=== PATIENT | female | born 1995 | race African-American/Black ===

== ENCOUNTER 2018-07-02 20:53 | Emergency (ER) | payer OTHER ==
[~2018-07-02 20:53] MED LIST: CARV3.1242 PO; CLON0.2T PO; FURO20TA4 PO; NIFE60TA64 PO
== END 2018-07-02 22:10 | disposition left against medical advice (07) ==
LOC: ER 20:53
DX: Z53.21 Procedure and treatment not carried out due to patient leaving prior to being seen by health care provider (principal)

== ENCOUNTER 2018-07-04 11:27 | Inpatient (IN) | payer OTHER ==
[~2018-07-04] VITALS: Ht 172.7 cm; Wt 112.5 kg
[2018-07-04] MEDS ORDERED: SODIUM CHLORIDE 0.9% 1,000 ML IV ONE ×2 (13:24→13:36)
[2018-07-04] MEDS ORDERED: ONDANSETRON HCL 4MG/2ML INJ IV STA (13:36)
[2018-07-04] MEDS ORDERED: MORPHINE SULFATE 4 MG/ML CPJ (NOT FOR IM USE) IV STA (13:36)
[2018-07-04] MEDS ORDERED: CEFTRIAXONE 1 G PREMIX 50 ML IV ONE (14:00)
[2018-07-04 14:57] LABS: CLARITY URINE CLEAR (CLEAR); COLOR URINE YELLOW (YELLOW); KETONES URINE NEGATIVE (NEGATIVE); LEUKOCYTE ESTERASE URINE NEGATIVE (NEGATIVE); NITRITE URINE NEGATIVE (NEGATIVE); OCCULT BLOOD URINE TRACE (NEGATIVE); PH URINE 6.5 (4.5-8.0); PROTEIN URINE 2+ (NEGATIVE); SPECIFIC GRAVITY URINE 1.007 (1.005-1.030); UROBILINOGEN URINE 0.2 E.U./dL (0.2-1.0)
[2018-07-04 15:10] LABS: BASOPHILS % 0.6 % (0.0-2.0); EOSINOPHILS % 8.7 % (0.0-5.0); HEMATOCRIT. 29.8 % (36.0-48.0); HEMOGLOBIN. 9.6 g/dL (12.0-16.0); LYMPHOCYTES % 25.9 % (20.0-50.0); MEAN CORPUSCULAR HEMOGLOBIN 24.3 pg (28.0-32.0); MEAN CORPUSCULAR VOLUME 75.1 fL (81.0-99.0); MEAN PLATELET VOLUME 7.4 fl (7.4-10.4); MONOCYTES % 7.1 % (2.0-8.0); NEUTROPHILS % 57.7 % (40.0-76.0); PLATELET 238 x1000/uL (130-400); RED BLOOD CELL COUNT 3.96 mill/uL (4.2-5.4); RED CELL DISTRIBUTION WIDTH 18.8 % (11.6-14.6)
[2018-07-04 15:14] LABS: INR 1.1; PROTHROMBIN TIME 10.9 sec (9.1-11.1)
[2018-07-04 15:20] LABS: CHLORIDE 107 mEq/L (98-107)
[2018-07-04 15:34] LABS: HCG SCREEN NEGATIVE
[2018-07-04] MEDS ORDERED: POTASSIUM CHLORIDE 20MEQ TABLET SR PO ONE (15:45)
[2018-07-04] MEDS ORDERED: IPRATROPIUM/ALBUTEROL 0.5-3(2.5)MG/3ML NEB INH PRN (19:30)
[2018-07-04] MEDS ORDERED: ACETAMINOPHEN 325MG TABLET PO PRN (19:30)
[2018-07-04] MEDS ORDERED: HYDROCODONE/ACETAMINOPHEN 5/325MG TABLET PO PRN (19:30)
[2018-07-04] MEDS ORDERED: LORAZEPAM 2MG/ML CPJ IV PRN (19:30)
[2018-07-04] MEDS: MORPHINE SULFATE 4 MG/ML CPJ (NOT FOR IM USE) IV PRN (20:15)
[2018-07-04] MEDS: ONDANSETRON HCL 4MG/2ML INJ IV PRN (20:16)
[2018-07-04 21:54] VITALS: BP 160/84
[2018-07-05] VITALS: BP 160/84
[2018-07-05] MEDS: MORPHINE SULFATE 4 MG/ML CPJ (NOT FOR IM USE) IV PRN ×4 (02:37→22:33)
[2018-07-05 04:00] VITALS: BP 151/81
[2018-07-05 08:00] VITALS: BP 142/76
[2018-07-05] MEDS: POTASSIUM CHLORIDE 20MEQ TABLET SR PO SCH ×2 (09:42→17:18)
[2018-07-05] MEDS: CEFTRIAXONE 1 G PREMIX 50 ML IV SCH (10:52)
[2018-07-05 12:00] VITALS: BP 150/80
[2018-07-05] MEDS: HYDROCODONE/ACETAMINOPHEN 10/325MG TABLET PO PRN (15:37)
[2018-07-05 16:00] VITALS: BP 180/101
[2018-07-05 16:14] LABS: HEMATOCRIT 27.2 % (36.0-48.0); HEMOGLOBIN 9.1 g/dL (12.0-16.0); MEAN CORPUSCULAR HEMOGLOBIN 25.1 pg (28.0-32.0); MEAN CORPUSCULAR VOLUME 75.3 fL (81.0-99.0); PLATELET 250 x1000/uL (130-400); RED BLOOD CELL COUNT 3.62 mill/uL (4.2-5.4); RED CELL DISTRIBUTION WIDTH 19.1 % (11.6-14.6)
[2018-07-05 16:23] LABS: CHLORIDE 106 mEq/L (98-107)
[2018-07-05] MEDS ORDERED: CARVEDILOL 3.125 MG TABLET PO SCH (17:00)
[2018-07-05] MEDS: CLONIDINE 0.2MG TABLET PO PRN (17:20)
[2018-07-05] MEDS ORDERED: MAGNESIUM 4 G PREMIX 100 ML IV NR (18:00)
[2018-07-05 20:00] VITALS: BP 158/87
[2018-07-06] VITALS: BP 152/75
[2018-07-06 04:00] VITALS: BP 159/86
[2018-07-06] MEDS: HYDROCODONE/ACETAMINOPHEN 10/325MG TABLET PO PRN (04:03)
[2018-07-06 07:31] LABS: BASOPHILS % 0.7 % (0.0-2.0); EOSINOPHILS % 8.1 % (0.0-5.0); HEMATOCRIT. 28.3 % (36.0-48.0); HEMOGLOBIN. 9.2 g/dL (12.0-16.0); LYMPHOCYTES % 26.2 % (20.0-50.0); MEAN CORPUSCULAR HEMOGLOBIN 24.5 pg (28.0-32.0); MEAN CORPUSCULAR VOLUME 75.3 fL (81.0-99.0); MEAN PLATELET VOLUME 7.4 fl (7.4-10.4); MONOCYTES % 7.8 % (2.0-8.0); NEUTROPHILS % 57.2 % (40.0-76.0); PLATELET 231 x1000/uL (130-400); RED BLOOD CELL COUNT 3.76 mill/uL (4.2-5.4); RED CELL DISTRIBUTION WIDTH 19.3 % (11.6-14.6)
[2018-07-06 08:00] VITALS: BP 177/99
[2018-07-06] MEDS: NIFEDIPINE XL 60MG TAB PO SCH (08:48)
[2018-07-06] MEDS: POTASSIUM CHLORIDE 20MEQ TABLET SR PO SCH ×2 (08:48→16:48)
[2018-07-06] MEDS: MORPHINE SULFATE 4 MG/ML CPJ (NOT FOR IM USE) IV PRN ×3 (08:49→18:08)
[2018-07-06] MEDS ORDERED: CARVEDILOL 3.125 MG TABLET PO SCH (09:00)
[2018-07-06] MEDS: CEFTRIAXONE 1 G PREMIX 50 ML IV SCH (11:27)
[2018-07-06 12:00] VITALS: BP 152/96
[2018-07-06 16:00] VITALS: BP 171/100
[2018-07-06] MEDS: CLONIDINE 0.2MG TABLET PO PRN ×2 (18:06→20:48)
[2018-07-06] MEDS: ONDANSETRON HCL 4MG/2ML INJ IV PRN (18:07)
[2018-07-06 20:00] VITALS: BP 161/89
[2018-07-07] VITALS: BP 136/79
[2018-07-07] MEDS: MORPHINE SULFATE 4 MG/ML CPJ (NOT FOR IM USE) IV PRN ×3 (02:48→15:04)
[2018-07-07 04:00] VITALS: BP 155/89
[2018-07-07 06:17] LABS: BASOPHILS % 0.1 % (0.0-2.0); EOSINOPHILS % 6.5 % (0.0-5.0); LYMPHOCYTES % 25.3 % (20.0-50.0); MEAN CORPUSCULAR HEMOGLOBIN 25.1 pg (28.0-32.0); MEAN CORPUSCULAR VOLUME 75.3 fL (81.0-99.0); MEAN PLATELET VOLUME 7.3 fl (7.4-10.4); MONOCYTES % 7.3 % (2.0-8.0); NEUTROPHILS % 60.8 % (40.0-76.0); PLATELET 252 x1000/uL (130-400); RED BLOOD CELL COUNT 3.58 mill/uL (4.2-5.4); RED CELL DISTRIBUTION WIDTH 18.8 % (11.6-14.6)
[2018-07-07 06:42] LABS: CHLORIDE 106 mEq/L (98-107)
[2018-07-07 06:55] LABS: PHOSPHORUS 4.3 mg/dL (2.5-4.9)
[2018-07-07 08:00] VITALS: BP 160/96
[2018-07-07] MEDS: POTASSIUM CHLORIDE 20MEQ TABLET SR PO SCH ×2 (09:59→16:14)
[2018-07-07] MEDS: NIFEDIPINE XL 60MG TAB PO SCH (10:04)
[2018-07-07] MEDS: CEFTRIAXONE 1 G PREMIX 50 ML IV SCH (10:25)
[2018-07-07 12:00] VITALS: BP 155/91
[2018-07-07] MEDS ORDERED: NIFEDIPINE XL 30MG TAB PO SCH (12:15)
[2018-07-07 16:00] VITALS: BP 150/83
[2018-07-07 20:00] VITALS: BP 154/92
[2018-07-08] VITALS: BP 121/100
[2018-07-08] MEDS: CLONIDINE 0.2MG TABLET PO PRN (00:13)
[2018-07-08] MEDS: MORPHINE SULFATE 4 MG/ML CPJ (NOT FOR IM USE) IV PRN ×2 (02:29→09:30)
[2018-07-08 04:00] VITALS: BP 168/104
[2018-07-08] MEDS: ONDANSETRON HCL 4MG/2ML INJ IV PRN (04:25)
[2018-07-08 07:53] LABS: BASOPHILS % 0.3 % (0.0-2.0); EOSINOPHILS % 8.7 % (0.0-5.0); HEMATOCRIT. 30.8 % (36.0-48.0); LYMPHOCYTES % 18.1 % (20.0-50.0); MEAN CORPUSCULAR HEMOGLOBIN 24.5 pg (28.0-32.0); MEAN CORPUSCULAR VOLUME 75.5 fL (81.0-99.0); MEAN PLATELET VOLUME 7.3 fl (7.4-10.4); MONOCYTES % 5.8 % (2.0-8.0); NEUTROPHILS % 67.1 % (40.0-76.0); PLATELET 264 x1000/uL (130-400); RED BLOOD CELL COUNT 4.08 mill/uL (4.2-5.4); RED CELL DISTRIBUTION WIDTH 18.7 % (11.6-14.6)
[2018-07-08 08:00] VITALS: BP 160/88
[2018-07-08 08:58] LABS: PHOSPHORUS 3.6 mg/dL (2.5-4.9)
[2018-07-08] MEDS ORDERED: NIFEDIPINE XL 90MG TAB PO SCH (09:00)
[2018-07-08] MEDS: POTASSIUM CHLORIDE 20MEQ TABLET SR PO SCH ×2 (09:14→17:44)
[2018-07-08] MEDS: NIFEDIPINE XL 90MG TAB PO SCH (09:17)
[2018-07-08] MEDS: CEFTRIAXONE 1 G PREMIX 50 ML IV SCH (10:54)
[2018-07-08 12:00] VITALS: BP 162/97
[2018-07-08] MEDS ORDERED: CLONIDINE HCL 0.2MG/24HR PATCH TD SCH (14:00)
[2018-07-08] MEDS: HYDROCODONE/ACETAMINOPHEN 10/325MG TABLET PO PRN ×2 (14:54→21:11)
[2018-07-08 16:00] VITALS: BP 149/84
[2018-07-08 20:00] VITALS: BP 154/90
[2018-07-09] VITALS: BP 150/85
[2018-07-09] MEDS: MORPHINE SULFATE 4 MG/ML CPJ (NOT FOR IM USE) IV PRN ×2 (01:14→09:15)
[2018-07-09 04:00] VITALS: BP 161/90
[2018-07-09 05:25] LABS: PHOSPHORUS 3.6 mg/dL (2.5-4.9)
[2018-07-09 06:13] LABS: BASOPHILS % 0.2 % (0.0-2.0); EOSINOPHILS % 12.8 % (0.0-5.0); HEMATOCRIT. 27.1 % (36.0-48.0); LYMPHOCYTES % 22.5 % (20.0-50.0); MEAN CORPUSCULAR HEMOGLOBIN 25.1 pg (28.0-32.0); MEAN CORPUSCULAR VOLUME 75.3 fL (81.0-99.0); MONOCYTES % 8.7 % (2.0-8.0); NEUTROPHILS % 55.8 % (40.0-76.0); PLATELET 229 x1000/uL (130-400); RED CELL DISTRIBUTION WIDTH 18.8 % (11.6-14.6)
[2018-07-09 08:00] VITALS: BP 164/102
[2018-07-09] MEDS ORDERED: POTASSIUM CHLORIDE 10MEQ TABLET SR PO NR (08:15)
[2018-07-09] MEDS ORDERED: HYDRALAZINE HCL 50MG TABLET PO SCH (09:00)
[2018-07-09] MEDS: POTASSIUM CHLORIDE 20MEQ TABLET SR PO SCH ×2 (09:09→17:03)
[2018-07-09] MEDS: HYDRALAZINE HCL 50MG TABLET PO SCH ×2 (09:10→21:34)
[2018-07-09] MEDS: NIFEDIPINE XL 90MG TAB PO SCH (09:10)
[2018-07-09] MEDS: CEFTRIAXONE 1 G PREMIX 50 ML IV SCH (11:08)
[2018-07-09 12:00] VITALS: BP 195/108
[2018-07-09] MEDS: CLONIDINE 0.1MG TABLET PO PRN (12:28)
[2018-07-09] MEDS: LEVOFLOXACIN 250MG TABLET PO SCH (12:30)
[2018-07-09] MEDS: HYDROCODONE/ACETAMINOPHEN 10/325MG TABLET PO PRN (14:33)
[2018-07-09 16:00] VITALS: BP 158/103
[2018-07-09 20:00] VITALS: BP 168/98
[2018-07-10] VITALS: BP_SYST 175; BP_SYST 99; BP_DIAS 60; BP_DIAS 98
[2018-07-10] MEDS: CLONIDINE 0.1MG TABLET PO PRN ×2 (01:00→13:44)
[2018-07-10] MEDS: HYDROCODONE/ACETAMINOPHEN 5/325MG TABLET PO PRN ×3 (01:00→18:32)
[2018-07-10 04:00] VITALS: BP_SYST 108; BP_SYST 168; BP_DIAS 99
[2018-07-10 08:00] VITALS: BP 184/108
[2018-07-10] MEDS: HYDRALAZINE HCL 50MG TABLET PO SCH ×2 (09:09→22:24)
[2018-07-10] MEDS: POTASSIUM CHLORIDE 20MEQ TABLET SR PO SCH ×2 (09:10→18:31)
[2018-07-10] MEDS: NIFEDIPINE XL 90MG TAB PO SCH ×2 (09:10→22:24)
[2018-07-10 10:41] LABS: HEMOGLOBIN. 9.9 g/dL (12.0-16.0); MEAN CORPUSCULAR HEMOGLOBIN 24.7 pg (28.0-32.0); MEAN CORPUSCULAR VOLUME 74.4 fL (81.0-99.0); MEAN PLATELET VOLUME 8.3 fl (7.4-10.4); PLATELET 228 x1000/uL (130-400); RED BLOOD CELL COUNT 4.03 mill/uL (4.2-5.4); RED CELL DISTRIBUTION WIDTH 18.8 % (11.6-14.6)
[2018-07-10 11:15] LABS: PHOSPHORUS 3.6 mg/dL (2.5-4.9)
[2018-07-10 12:00] VITALS: BP 161/91
[2018-07-10 12:06] LABS: PLATELET ESTIMATE NORMAL
[2018-07-10 16:00] VITALS: BP 155/93
[2018-07-10 20:00] VITALS: BP 148/81
[2018-07-11 01:24] VITALS: BP 147/83
[2018-07-11 02:24] VITALS: BP 148/81
[2018-07-11 04:40] VITALS: BP 132/67
[2018-07-11] MEDS: POTASSIUM CHLORIDE 20MEQ TABLET SR PO SCH (08:22)
[2018-07-11] MEDS: NIFEDIPINE XL 90MG TAB PO SCH (08:22)
[2018-07-11] MEDS: HYDRALAZINE HCL 50MG TABLET PO SCH (08:22)
[2018-07-11 10:53] LABS: HEMATOCRIT. 30.2 % (36.0-48.0); MEAN CORPUSCULAR HEMOGLOBIN 24.8 pg (28.0-32.0); MEAN CORPUSCULAR VOLUME 75.1 fL (81.0-99.0); MEAN PLATELET VOLUME 7.5 fl (7.4-10.4); PLATELET 278 x1000/uL (130-400); RED BLOOD CELL COUNT 4.02 mill/uL (4.2-5.4); RED CELL DISTRIBUTION WIDTH 19.1 % (11.6-14.6)
[2018-07-11 11:10] LABS: PHOSPHORUS 3.4 mg/dL (2.5-4.9)
[2018-07-11] MEDS ORDERED: LEVO250T2 PO (11:29)
[2018-07-11] MEDS ORDERED: NIFE90TA34 PO (11:29)
[2018-07-11] MEDS ORDERED: HYDR-4135 PO (11:29)
[2018-07-11] MEDS ORDERED: CLON1PAT11 TD (11:29)
[2018-07-11] MEDS ORDERED: POTA20TA82 PO (11:29)
[2018-07-11 11:32] LABS: PLATELET ESTIMATE NORMAL
[2018-07-11 12:00] VITALS: BP 172/100
[2018-07-11] MEDS: LEVOFLOXACIN 250MG TABLET PO SCH (12:16)
[2018-07-11 12:41] VITALS: BP 151/77
[2018-07-12] MEDS ORDERED: POTASSIUM CHLORIDE 20MEQ TABLET SR PO SCH (09:00)
== END 2018-07-11 15:15 | disposition home or self-care (01) | DRG 468 ==
LOC: ER 13:42 → 6EST 15:41 → ENRESERV 20:21
PROVIDERS: ADMIT Internal Medicine; ATTEND Internal Medicine
DX: N28.1 Cyst of kidney, acquired (principal); N17.9 Acute kidney failure, unspecified; N18.4 Chronic kidney disease, stage 4 (severe); E83.42 Hypomagnesemia; E83.51 Hypocalcemia; E66.9 Obesity, unspecified; N39.0 Urinary tract infection, site not specified; E87.6 Hypokalemia; R31.9 Hematuria, unspecified; D64.9 Anemia, unspecified; I12.9 Hypertensive chronic kidney disease with stage 1 through stage 4 chronic kidney disease, or unspecified chronic kidney disease; E28.2 Polycystic ovarian syndrome; Z88.0 Allergy status to penicillin; Z68.37 Body mass index [BMI] 37.0-37.9, adult; Z88.6 Allergy status to analgesic agent; Z88.1 Allergy status to other antibiotic agents; Z79.899 Other long term (current) drug therapy; Z87.891 Personal history of nicotine dependence
CPT/HCPCS: 36415; 74176; 76770; 80048; 81025; 83735; 84100; 84703; 85027; 96361; 96365; 96375; 99285; J0696; J2270; J2405; J3475; J7030; J7050

== ENCOUNTER 2018-08-29 02:15 | Emergency (ER) | payer OTHER ==
[~2018-08-29] VITALS: Ht 172.7 cm; Wt 116.0 kg
[~2018-08-29 02:15] MED LIST changes: -CARV3.1242 PO; -CLON0.2T PO; +CLON1PAT11 TD; -FURO20TA4 PO; +HYDR-4135 PO; +LEVO250T2 PO; -NIFE60TA64 PO; +NIFE90TA34 PO; +POTA20TA82 PO
[2018-08-29 02:22] VITALS: BP 169/86
== END 2018-08-29 04:31 | disposition left against medical advice (07) ==
LOC: ER 02:15
DX: R10.9 Unspecified abdominal pain (principal); Z53.21 Procedure and treatment not carried out due to patient leaving prior to being seen by health care provider

== ENCOUNTER 2018-09-14 22:44 | Emergency (ER) | payer OTHER ==
[~2018-09-14] VITALS: Ht 172.7 cm; Wt 115.0 kg
[2018-09-15] MEDS ORDERED: KETOROLAC 60MG/2ML VIAL IM ONE (04:45)
[2018-09-15 05:14] LABS: CLARITY URINE CLEAR (CLEAR); COLOR URINE YELLOW (YELLOW); KETONES URINE NEGATIVE (NEGATIVE); LEUKOCYTE ESTERASE URINE TRACE (NEGATIVE); NITRITE URINE NEGATIVE (NEGATIVE); OCCULT BLOOD URINE TRACE (NEGATIVE); PROTEIN URINE 2+ (NEGATIVE); SPECIFIC GRAVITY URINE 1.009 (1.005-1.030); UROBILINOGEN URINE 0.2 E.U./dL (0.2-1.0)
[2018-09-15] MEDS ORDERED: ACETAMINOPHEN 500MG TABLET PO ONE (06:00)
[2018-09-15] MEDS ORDERED: CLONIDINE 0.2MG TABLET PO ONE (06:00)
[2018-09-15 06:52] VITALS: BP 178/89
== END 2018-09-15 06:54 | disposition home or self-care (01) ==
LOC: ER 22:44
DX: N39.0 Urinary tract infection, site not specified (principal); I10 Essential (primary) hypertension; F12.10 Cannabis abuse, uncomplicated; F17.200 Nicotine dependence, unspecified, uncomplicated; Z88.0 Allergy status to penicillin; Z88.8 Allergy status to other drugs, medicaments and biological substances
CPT/HCPCS: 74176; 81003; 81025; 99284; J1885

== ENCOUNTER 2018-09-19 17:52 | Emergency (ER) | payer OTHER ==
[~2018-09-19] VITALS: Ht 172.7 cm; Wt 113.5 kg
[2018-09-19 18:12] VITALS: BP 199/96
[2018-09-19 19:08] LABS: CHLORIDE 110 mEq/L (98-107)
[2018-09-19 19:12] LABS: BASOPHILS % 0.9 % (0.0-2.0); EOSINOPHILS % 3.3 % (0.0-5.0); HEMATOCRIT. 27.6 % (36.0-48.0); LYMPHOCYTES % 29.7 % (20.0-50.0); MEAN CORPUSCULAR HEMOGLOBIN 25.1 pg (28.0-32.0); MEAN CORPUSCULAR VOLUME 76.7 fL (81.0-99.0); MEAN PLATELET VOLUME 8.3 fl (7.4-10.4); MONOCYTES % 6.3 % (2.0-8.0); NEUTROPHILS % 59.8 % (40.0-76.0); PLATELET 244 x1000/uL (130-400)
[2018-09-19 19:25] LABS: HCG SCREEN NEGATIVE
== END 2018-09-19 20:30 | disposition left against medical advice (07) ==
LOC: ER 17:52
DX: R07.89 Other chest pain (principal); M54.9 Dorsalgia, unspecified; Z53.21 Procedure and treatment not carried out due to patient leaving prior to being seen by health care provider
CPT/HCPCS: 36415; 83880; 84484; 84703; 93005

== ENCOUNTER 2018-10-24 12:03 | Emergency (ER) | payer OTHER ==
[~2018-10-24] VITALS: Ht 172.7 cm; Wt 116.0 kg
[2018-10-24 15:20] LABS: CHLORIDE 109 mEq/L (98-107)
[2018-10-24 15:21] LABS: BASOPHILS % 0.6 % (0.0-2.0); EOSINOPHILS % 3.4 % (0.0-5.0); HEMATOCRIT. 28.3 % (36.0-48.0); HEMOGLOBIN. 9.1 g/dL (12.0-16.0); INR 1.1; LYMPHOCYTES % 27.1 % (20.0-50.0); MEAN CORPUSCULAR HEMOGLOBIN 24.9 pg (28.0-32.0); MEAN CORPUSCULAR VOLUME 77.2 fL (81.0-99.0); MEAN PLATELET VOLUME 8.2 fl (7.4-10.4); MONOCYTES % 8.6 % (2.0-8.0); NEUTROPHILS % 60.3 % (40.0-76.0); PLATELET 236 x1000/uL (130-400); PROTHROMBIN TIME 10.9 sec (9.1-11.1); RED BLOOD CELL COUNT 3.67 mill/uL (4.2-5.4); RED CELL DISTRIBUTION WIDTH 17.7 % (11.6-14.6)
[2018-10-24] MEDS ORDERED: POTASSIUM CHLORIDE 20MEQ TABLET SR PO ONE (15:45)
[2018-10-24 17:51] LABS: CLARITY URINE CLEAR (CLEAR); COLOR URINE YELLOW (YELLOW); KETONES URINE NEGATIVE (NEGATIVE); LEUKOCYTE ESTERASE URINE TRACE (NEGATIVE); NITRITE URINE NEGATIVE (NEGATIVE); OCCULT BLOOD URINE NEGATIVE (NEGATIVE); PROTEIN URINE 2+ (NEGATIVE); SPECIFIC GRAVITY URINE 1.008 (1.005-1.030); UROBILINOGEN URINE 0.2 E.U./dL (0.2-1.0)
[2018-10-24] MEDS ORDERED: ONDANSETRON HCL 4MG/2ML INJ IV ONE (18:15)
[2018-10-24] MEDS ORDERED: MORPHINE SULFATE 4 MG/ML CPJ (NOT FOR IM USE) IV ONE (18:15)
[2018-10-24 20:21] VITALS: BP 162/78
== END 2018-10-24 20:25 | disposition home or self-care (01) ==
LOC: ER 12:03
DX: N39.0 Urinary tract infection, site not specified (principal); Q61.3 Polycystic kidney, unspecified; I12.0 Hypertensive chronic kidney disease with stage 5 chronic kidney disease or end stage renal disease; N18.6 End stage renal disease; Z88.0 Allergy status to penicillin; Z88.8 Allergy status to other drugs, medicaments and biological substances; Z79.899 Other long term (current) drug therapy; Z98.890 Other specified postprocedural states
CPT/HCPCS: 36415; 74176; 76770; 80053; 81003; 81025; 85025; 85610; 93005; 96374; 96375; 96376; 99284; J2270; J2405; Z7610

== ENCOUNTER 2018-12-31 04:46 | Inpatient (IN) | payer MEDICAID, OTHER ==
[~2018-12-31] VITALS: Ht 172.7 cm; Wt 110.3 kg
[2018-12-31 05:41] LABS: CLARITY URINE CLEAR (CLEAR); COLOR URINE YELLOW (YELLOW); KETONES URINE NEGATIVE (NEGATIVE); LEUKOCYTE ESTERASE URINE TRACE (NEGATIVE); NITRITE URINE NEGATIVE (NEGATIVE); OCCULT BLOOD URINE NEGATIVE (NEGATIVE); PH URINE 6.5 (4.5-8.0); PROTEIN URINE 1+ (NEGATIVE); SPECIFIC GRAVITY URINE 1.007 (1.005-1.030); UROBILINOGEN URINE 0.2 E.U./dL (0.2-1.0)
[2018-12-31 06:27] LABS: BASOPHILS % 1.2 % (0.0-2.0); EOSINOPHILS % 2.4 % (0.0-5.0); HEMATOCRIT. 25.7 % (36.0-48.0); HEMOGLOBIN. 8.4 g/dL (12.0-16.0); LYMPHOCYTES % 13.9 % (20.0-50.0); MEAN CORPUSCULAR HEMOGLOBIN 24.8 pg (28.0-32.0); MEAN CORPUSCULAR VOLUME 76.3 fL (81.0-99.0); MEAN PLATELET VOLUME 7.7 fl (7.4-10.4); MONOCYTES % 7.8 % (2.0-8.0); NEUTROPHILS % 74.7 % (40.0-76.0); PLATELET 206 x1000/uL (130-400); RED BLOOD CELL COUNT 3.37 mill/uL (4.2-5.4)
[2018-12-31 06:34] LABS: CHLORIDE 112 mEq/L (98-107)
[2018-12-31] MEDS ORDERED: POTASSIUM CHLORIDE 20MEQ TABLET SR PO ONE (07:00)
[2018-12-31] MEDS ORDERED: ACETAMINOPHEN 325MG TABLET PO ONE (07:15)
[2018-12-31] MEDS ORDERED: METOCLOPRAMIDE HCL 10MG/2ML VIAL IV ONE (07:15)
[2018-12-31] MEDS ORDERED: MORPHINE SULFATE 4 MG/ML CPJ (NOT FOR IM USE) IV ONE (08:15)
[2018-12-31] MEDS ORDERED: HYDRALAZINE HCL 50MG TABLET PO ONE (12:30)
[2018-12-31] MEDS ORDERED: ONDANSETRON HCL 4MG/2ML INJ IV PRN (13:15)
[2018-12-31] MEDS ORDERED: POTASSIUM CHLORIDE 20MEQ TABLET SR PO NR (13:15)
[2018-12-31] MEDS ORDERED: ACETAMINOPHEN 325MG TABLET PO PRN (13:15)
[2018-12-31] MEDS ORDERED: HYDRALAZINE HCL 25MG TABLET ONE (13:16)
[2018-12-31 14:26] LABS: PHOSPHORUS 4.5 mg/dL (2.5-4.9)
[2018-12-31] MEDS ORDERED: MAGNESIUM 2 G PREMIX 50 ML IV NR (15:00)
[2018-12-31] MEDS: MORPHINE SULFATE 4 MG/ML CPJ (NOT FOR IM USE) IV PRN (15:20)
[2018-12-31 18:00] VITALS: BP 172/86
[2018-12-31 20:00] VITALS: BP 199/102
[2018-12-31] MEDS ORDERED: SUMATRIPTAN SUCCINATE 6MG/0.5ML VIAL SUBCUT NR (20:00)
[2018-12-31] MEDS ORDERED: LEVOFLOXACIN 250MG PREMIX 50 ML IV SCH (20:00)
[2018-12-31] MEDS: NIFEDIPINE XL 60MG TAB PO SCH (20:34)
[2018-12-31] MEDS: HYDRALAZINE HCL 50MG TABLET PO SCH (20:35)
[2018-12-31] MEDS: HYDROCODONE/ACETAMINOPHEN 5/325MG TABLET PO PRN (20:35)
[2018-12-31] MEDS ORDERED: AMLODIPINE 5MG TABLET PO SCH (21:00)
[2018-12-31 22:00] VITALS: BP 186/91
[2018-12-31] MEDS: CLONIDINE 0.2MG TABLET PO SCH (22:32)
[2019-01-01] VITALS (17 sets, daily range): BP systolic 137–199; BP diastolic 67–110
[2019-01-01] MEDS: HYDROCODONE/ACETAMINOPHEN 5/325MG TABLET PO PRN ×3 (03:22→19:29)
[2019-01-01] MEDS: CLONIDINE 0.2MG TABLET PO SCH ×3 (05:20→22:15)
[2019-01-01 08:31] LABS: BASOPHILS % 0.9 % (0.0-2.0); EOSINOPHILS % 2.8 % (0.0-5.0); HEMOGLOBIN. 7.8 g/dL (12.0-16.0); LYMPHOCYTES % 29.2 % (20.0-50.0); MEAN CORPUSCULAR HEMOGLOBIN 24.7 pg (28.0-32.0); MEAN PLATELET VOLUME 7.4 fl (7.4-10.4); MONOCYTES % 8.3 % (2.0-8.0); NEUTROPHILS % 58.8 % (40.0-76.0); PLATELET 181 x1000/uL (130-400); RED BLOOD CELL COUNT 3.16 mill/uL (4.2-5.4); RED CELL DISTRIBUTION WIDTH 17.6 % (11.6-14.6)
[2019-01-01 08:34] LABS: INR 1.2
[2019-01-01] MEDS ORDERED: ACETAZOLAMIDE 250MG TABLET PO SCH (09:00)
[2019-01-01] MEDS: HYDRALAZINE HCL 50MG TABLET PO SCH ×2 (09:10→22:14)
[2019-01-01] MEDS: NIFEDIPINE XL 60MG TAB PO SCH ×2 (09:10→22:15)
[2019-01-01 10:23] LABS: *AMPHETAMINES SCREEN URINE NEGATIVE (NEGATIVE); CANNABINOID URINE SCREEN NEGATIVE (NEGATIVE)
[2019-01-01 10:24] LABS: *BARBITURATES SCREEN URINE NEGATIVE (NEGATIVE); *BENZODIAZEPINES SCREEN URINE NEGATIVE (NEGATIVE); *COCAINE SCREEN URINE NEGATIVE (NEGATIVE); METHADONE URINE SCREEN NEGATIVE (NEGATIVE); PHENCYCLIDINE URINE SCREEN NEGATIVE (NEGATIVE)
[2019-01-01 10:25] LABS: OPIATES URINE SCREEN PRESUMTIVE POSITIVE (NEGATIVE)
[2019-01-01] MEDS ORDERED: DIPHENHYDRAMINE 50MG/ML VIAL ONE (10:33)
[2019-01-01] MEDS: MORPHINE SULFATE 4 MG/ML CPJ (NOT FOR IM USE) IV PRN ×2 (10:38→17:39)
[2019-01-01] MEDS: DIPHENHYDRAMINE 50MG/ML VIAL IV PRN ×2 (10:40→15:58)
[2019-01-01] MEDS ORDERED: SODIUM BICARBONATE 4% (2.4MEQ) 5ML VIAL IV ONE (12:39)
[2019-01-01] MEDS ORDERED: FENTANYL CITRATE/PF 50MCG/ML 2ML VIAL ONE (12:39)
[2019-01-01] MEDS ORDERED: LIDOCAINE HCL 1% 20ML VIAL (Pyxis) INJ ONE ×2 (12:39→13:48)
[2019-01-01] MEDS ORDERED: MIDAZOLAM HCL 2 MG/2 ML VIAL ONE (13:31)
[2019-01-01] MEDS ORDERED: HEPARIN 1000 UNITS/ML 10ML ONE (13:31)
[2019-01-01] MEDS ORDERED: FENTANYL CITRATE/PF 50MCG/ML 2ML VIAL IV NR (14:00)
[2019-01-01] MEDS ORDERED: MIDAZOLAM HCL 2 MG/2 ML VIAL IV NR (14:00)
[2019-01-02] VITALS (7 sets, daily range): BP systolic 117–147; BP diastolic 70–84
[2019-01-02] MEDS: MORPHINE SULFATE 4 MG/ML CPJ (NOT FOR IM USE) IV PRN ×2 (02:54→23:56)
[2019-01-02] MEDS: CLONIDINE 0.2MG TABLET PO SCH ×2 (05:36→13:16)
[2019-01-02 06:09] LABS: BASOPHILS % 0.9 % (0.0-2.0); EOSINOPHILS % 2.7 % (0.0-5.0); HEMATOCRIT. 26.1 % (36.0-48.0); HEMOGLOBIN. 8.4 g/dL (12.0-16.0); LYMPHOCYTES % 25.9 % (20.0-50.0); MEAN CORPUSCULAR HEMOGLOBIN 24.9 pg (28.0-32.0); MEAN PLATELET VOLUME 8.4 fl (7.4-10.4); MONOCYTES % 8.4 % (2.0-8.0); NEUTROPHILS % 62.1 % (40.0-76.0); PLATELET 213 x1000/uL (130-400); RED BLOOD CELL COUNT 3.39 mill/uL (4.2-5.4); RED CELL DISTRIBUTION WIDTH 17.6 % (11.6-14.6)
[2019-01-02 06:58] LABS: PHOSPHORUS 3.9 mg/dL (2.5-4.9)
[2019-01-02 07:13] LABS: HEPATITIS B SURFACE ANTIGEN NEGATIVE
[2019-01-02 07:42] LABS: HEPATITIS A AB IGM NEGATIVE (NEGATIVE)
[2019-01-02] MEDS: NIFEDIPINE XL 60MG TAB PO SCH ×2 (08:27→20:45)
[2019-01-02] MEDS: IRON SUCROSE COMPLEX 100 MG/5 ML ML IV SCH (08:27)
[2019-01-02] MEDS: HYDRALAZINE HCL 50MG TABLET PO SCH ×2 (08:32→20:45)
[2019-01-02] MEDS: HYDROCODONE/ACETAMINOPHEN 5/325MG TABLET PO PRN ×2 (08:45→16:20)
[2019-01-02] MEDS: DIPHENHYDRAMINE 50MG/ML VIAL IV PRN (20:37)
[2019-01-02] MEDS: CLONIDINE 0.1MG TABLET PO SCH (20:44)
[2019-01-02] MEDS: LEVOFLOXACIN 250MG PREMIX 50 ML IV SCH (21:50)
[2019-01-03 04:42] VITALS: BP 141/69
[2019-01-03] MEDS: MORPHINE SULFATE 4 MG/ML CPJ (NOT FOR IM USE) IV PRN ×4 (05:24→20:35)
[2019-01-03] MEDS: CLONIDINE 0.1MG TABLET PO SCH ×2 (05:32→17:12)
[2019-01-03 08:00] VITALS: BP 130/71
[2019-01-03 08:11] LABS: BASOPHILS % 0.6 % (0.0-2.0); EOSINOPHILS % 3.6 % (0.0-5.0); HEMATOCRIT. 25.8 % (36.0-48.0); HEMOGLOBIN. 8.3 g/dL (12.0-16.0); LYMPHOCYTES % 32.9 % (20.0-50.0); MEAN CORPUSCULAR HEMOGLOBIN 24.8 pg (28.0-32.0); MEAN CORPUSCULAR VOLUME 77.5 fL (81.0-99.0); MEAN PLATELET VOLUME 8.2 fl (7.4-10.4); MONOCYTES % 9.7 % (2.0-8.0); NEUTROPHILS % 53.2 % (40.0-76.0); PLATELET 206 x1000/uL (130-400); RED BLOOD CELL COUNT 3.34 mill/uL (4.2-5.4); RED CELL DISTRIBUTION WIDTH 17.8 % (11.6-14.6)
[2019-01-03] MEDS: NIFEDIPINE XL 60MG TAB PO SCH (09:00)
[2019-01-03] MEDS: HYDRALAZINE HCL 50MG TABLET PO SCH ×2 (09:00→20:34)
[2019-01-03] MEDS: IRON SUCROSE COMPLEX 100 MG/5 ML ML IV SCH (09:06)
[2019-01-03] MEDS ORDERED: PROPOFOL 200MG/20ML VIAL IV ONE (09:50)
[2019-01-03] MEDS ORDERED: MIDAZOLAM HCL 5 MG/5 ML VIAL ONE (09:50)
[2019-01-03] MEDS ORDERED: LIDOCAINE HCL 1% 20ML VIAL (Pyxis) INJ ONE (09:56)
[2019-01-03] MEDS ORDERED: SODIUM CHLORIDE 0.9% 1,000 ML IV ONE (10:08)
[2019-01-03] MEDS ORDERED: ONDANSETRON HCL 4MG/2ML INJ IV PRN (10:15)
[2019-01-03] MEDS ORDERED: HYDROMORPHONE HCL/PF 2MG/ML CPJ IV PRN (10:15)
[2019-01-03] MEDS ORDERED: TETRACAINE 0.5% OPHTH DROPS 4ML ONE (10:54)
[2019-01-03] MEDS ORDERED: BALANCED SALT IRRIG SOLN 15ML ONE (10:54)
[2019-01-03 11:28] VITALS: BP 126/61
[2019-01-03] MEDS: DIPHENHYDRAMINE 50MG/ML VIAL IM PRN (13:36)
[2019-01-03 16:00] VITALS: BP 139/85
[2019-01-03 20:04] VITALS: BP 136/85
[2019-01-04 00:21] VITALS: BP 125/73
[2019-01-04] MEDS: MORPHINE SULFATE 4 MG/ML CPJ (NOT FOR IM USE) IV PRN ×4 (01:21→20:31)
[2019-01-04 04:00] VITALS: BP 128/71
[2019-01-04] MEDS: DIPHENHYDRAMINE 50MG/ML VIAL IM PRN ×3 (04:47→23:46)
[2019-01-04 08:00] VITALS: BP 134/93
[2019-01-04] MEDS: IRON SUCROSE COMPLEX 100 MG/5 ML ML IV SCH (08:44)
[2019-01-04] MEDS: HYDRALAZINE HCL 50MG TABLET PO SCH ×2 (08:44→20:29)
[2019-01-04] MEDS: CLONIDINE 0.1MG TABLET PO SCH ×2 (08:45→16:50)
[2019-01-04 12:00] VITALS: BP 133/79
[2019-01-04] MEDS ORDERED: ALPRAZOLAM 0.5 MG TABLET PO PRN (14:15)
[2019-01-04 16:00] VITALS: BP 136/73
[2019-01-04 20:00] VITALS: BP 143/58
[2019-01-04] MEDS: LEVOFLOXACIN 250MG PREMIX 50 ML IV SCH (20:30)
[2019-01-05] VITALS: BP 151/89
[2019-01-05 04:00] VITALS: BP 152/92
[2019-01-05] MEDS: MORPHINE SULFATE 4 MG/ML CPJ (NOT FOR IM USE) IV PRN ×2 (05:44→17:05)
[2019-01-05 07:01] LABS: BASOPHILS % 0.7 % (0.0-2.0); EOSINOPHILS % 4.6 % (0.0-5.0); HEMATOCRIT. 25.4 % (36.0-48.0); HEMOGLOBIN. 8.2 g/dL (12.0-16.0); LYMPHOCYTES % 27.5 % (20.0-50.0); MEAN CORPUSCULAR VOLUME 77.7 fL (81.0-99.0); MEAN PLATELET VOLUME 8.6 fl (7.4-10.4); MONOCYTES % 9.2 % (2.0-8.0); PLATELET 220 x1000/uL (130-400); RED BLOOD CELL COUNT 3.27 mill/uL (4.2-5.4)
[2019-01-05 08:21] VITALS: BP 149/77
[2019-01-05] MEDS: CLONIDINE 0.1MG TABLET PO SCH ×3 (08:44→23:27)
[2019-01-05] MEDS: HYDRALAZINE HCL 50MG TABLET PO SCH ×2 (08:44→21:45)
[2019-01-05] MEDS: DIPHENHYDRAMINE 50MG/ML VIAL IV PRN (10:48)
[2019-01-05 11:40] VITALS: BP 145/88
[2019-01-05 16:29] VITALS: BP 156/79
[2019-01-05 20:00] VITALS: BP 164/92
[2019-01-05] MEDS: DIPHENHYDRAMINE 50MG/ML VIAL IM PRN (21:45)
[2019-01-06] VITALS: BP 141/80
[2019-01-06 04:00] VITALS: BP 151/86
[2019-01-06] MEDS: CLONIDINE 0.1MG TABLET PO SCH (06:29)
[2019-01-06 08:00] VITALS: BP 152/87
[2019-01-06] MEDS: HYDRALAZINE HCL 50MG TABLET PO SCH (09:36)
[2019-01-06] MEDS: MORPHINE SULFATE 4 MG/ML CPJ (NOT FOR IM USE) IV PRN (10:42)
[2019-01-06 12:00] VITALS: BP 147/73
[2019-01-06 14:00] VITALS: BP 147/73
== END 2019-01-06 15:04 | disposition home or self-care (01) | DRG 470 ==
LOC: ER 04:46 → EDBEDREQ 08:48 → 6WST 12:32 → EDBEDREQ 12:36 → ENRESERV 14:17 → 6WST 01-01 19:14 → 7WST 01-02 17:49
PROVIDERS: ADMIT Internal Medicine; ATTEND Internal Medicine
PROC: 0JH63XZ Insertion of Tunneled Vascular Access Device into Chest Subcutaneous Tissue and Fascia, Percutaneous Approach (ICD-10-PCS; principal; 2019-01-01)
PROC: 5A1D70Z Performance of Urinary Filtration, Intermittent, Less than 6 Hours Per Day (ICD-10-PCS; 2019-01-01)
PROC: B518ZZA Fluoroscopy of Superior Vena Cava, Guidance (ICD-10-PCS; 2019-01-01)
PROC: 3E0CXGC Introduction of Other Therapeutic Substance into Eye, External Approach (ICD-10-PCS; 2019-01-03)
DX: I12.0 Hypertensive chronic kidney disease with stage 5 chronic kidney disease or end stage renal disease (principal); N17.9 Acute kidney failure, unspecified; E87.8 Other disorders of electrolyte and fluid balance, not elsewhere classified; E44.1 Mild protein-calorie malnutrition; E83.42 Hypomagnesemia; Q61.3 Polycystic kidney, unspecified; D50.9 Iron deficiency anemia, unspecified; F17.210 Nicotine dependence, cigarettes, uncomplicated; E87.6 Hypokalemia; N18.6 End stage renal disease; H34.81 Central retinal vein occlusion; R31.0 Gross hematuria; E66.9 Obesity, unspecified; N39.0 Urinary tract infection, site not specified; H54.61 Unqualified visual loss, right eye, normal vision left eye; Z88.1 Allergy status to other antibiotic agents; Z88.6 Allergy status to analgesic agent; Z88.8 Allergy status to other drugs, medicaments and biological substances; Z79.2 Long term (current) use of antibiotics; Z79.899 Other long term (current) drug therapy; Z68.37 Body mass index [BMI] 37.0-37.9, adult; Z91.19 Patient's noncompliance with other medical treatment and regimen; Z99.2 Dependence on renal dialysis
CPT/HCPCS: 36415; 36558; 70551; 71045; 76937; 77001; 80048; 80305; 82088; 82728; 83540; 83550; 83735; 84100; 84244; 86705; 86706; 86709; 86803; 87340; 93005; 93970; 96374; 96375; 99152; 99153; 99285; C1750; C1769; C1893; J1200; J1644; J1956; J2250; J2270; J2405; J2704; J2765; J3010; J3030; J3475; J3490; J7050; G0500

== ENCOUNTER 2019-01-13 18:20 | Emergency (ER) | payer MEDICAID, OTHER ==
[~2019-01-13] VITALS: Ht 172.7 cm; Wt 108.0 kg
[~2019-01-13 18:20] MED LIST changes: -LEVO250T2 PO
[2019-01-13] MEDS ORDERED: HYDRALAZINE 20MG/ML VIAL IV ONE (20:00)
[2019-01-13 20:26] LABS: CHLORIDE 106 mEq/L (98-107)
[2019-01-13 20:28] LABS: PARTIAL THROMBOPLASTIN TIME 28.9 sec (23.4-31.0); PROTHROMBIN TIME 10.7 sec (9.6-11.0)
[2019-01-13 20:33] VITALS: BP 139/70
[2019-01-13 20:33] LABS: PHOSPHORUS 5.1 mg/dL (2.5-4.9)
[2019-01-13 20:36] LABS: BASOPHILS % 0.7 % (0.0-2.0); EOSINOPHILS % 2.2 % (0.0-5.0); HEMATOCRIT. 27.6 % (36.0-48.0); HEMOGLOBIN. 8.7 g/dL (12.0-16.0); LYMPHOCYTES % 29.2 % (20.0-50.0); MEAN CORPUSCULAR HEMOGLOBIN 24.7 pg (28.0-32.0); MEAN CORPUSCULAR VOLUME 78.8 fL (81.0-99.0); MEAN PLATELET VOLUME 9.4 fl (7.4-10.4); MONOCYTES % 10.9 % (2.0-8.0); PLATELET 248 x1000/uL (130-400); RED BLOOD CELL COUNT 3.51 mill/uL (4.2-5.4); RED CELL DISTRIBUTION WIDTH 18.1 % (11.6-14.6)
[2019-01-13 21:25] LABS: HCG SCREEN NEGATIVE
== END 2019-01-13 22:14 | disposition home or self-care (01) ==
LOC: ER 18:30 → CANBEDREQ 01-14 01:46
DX: T82.49XA Other complication of vascular dialysis catheter, initial encounter (principal); X58.XXXA Exposure to other specified factors, initial encounter; E87.8 Other disorders of electrolyte and fluid balance, not elsewhere classified; D64.9 Anemia, unspecified; I12.0 Hypertensive chronic kidney disease with stage 5 chronic kidney disease or end stage renal disease; N18.6 End stage renal disease; Z99.2 Dependence on renal dialysis; Z88.0 Allergy status to penicillin; Z88.1 Allergy status to other antibiotic agents; Z88.6 Allergy status to analgesic agent
CPT/HCPCS: 36415; 71045; 80053; 83735; 84100; 84484; 84703; 85025; 85610; 85730; 93005; 99284; J0360

== ENCOUNTER 2019-01-14 11:17 | Emergency (ER) | payer MEDICAID, OTHER ==
[2019-01-14] VITALS (8 sets, daily range): BP systolic 170–209; BP diastolic 90–110
[~2019-01-14] VITALS: Ht 172.7 cm; Wt 107.0 kg
[2019-01-14] MEDS ORDERED: DIPHENHYDRAMINE 50MG CAPSULE PO ONE (14:15)
[2019-01-14 14:45] LABS: BASOPHILS % 1.2 % (0.0-2.0); EOSINOPHILS % 1.5 % (0.0-5.0); HEMATOCRIT. 28.1 % (36.0-48.0); HEMOGLOBIN. 8.8 g/dL (12.0-16.0); LYMPHOCYTES % 24.3 % (20.0-50.0); MEAN CORPUSCULAR HEMOGLOBIN 24.5 pg (28.0-32.0); MEAN PLATELET VOLUME 9.4 fl (7.4-10.4); MONOCYTES % 9.1 % (2.0-8.0); NEUTROPHILS % 63.9 % (40.0-76.0); PLATELET 237 x1000/uL (130-400); RED CELL DISTRIBUTION WIDTH 18.2 % (11.6-14.6)
[2019-01-14 14:51] LABS: CHLORIDE 105 mEq/L (98-107)
[2019-01-14 14:53] LABS: INR 1.1; PARTIAL THROMBOPLASTIN TIME 28.7 sec (23.4-31.0)
[2019-01-14] MEDS ORDERED: CLINDAMYCIN 600MG PREMIX 50 ML IV NR (15:30)
[2019-01-14] MEDS ORDERED: SODIUM BICARBONATE 4% (2.4MEQ) 5ML VIAL IV ONE (15:34)
[2019-01-14] MEDS ORDERED: LIDOCAINE HCL 1% 20ML VIAL (Pyxis) INJ ONE (15:34)
[2019-01-14] MEDS ORDERED: FENTANYL CITRATE/PF 50MCG/ML 2ML VIAL ONE (15:40)
[2019-01-14] MEDS ORDERED: FENTANYL CITRATE/PF 50MCG/ML 2ML VIAL IV ONE (16:00)
== END 2019-01-14 18:35 | disposition home or self-care (01) ==
LOC: ER 11:17 → CANBEDREQ 20:22
DX: T82.41XA Breakdown (mechanical) of vascular dialysis catheter, initial encounter (principal); I12.0 Hypertensive chronic kidney disease with stage 5 chronic kidney disease or end stage renal disease; N18.6 End stage renal disease; Z99.2 Dependence on renal dialysis; Z98.890 Other specified postprocedural states; Z88.1 Allergy status to other antibiotic agents; Z88.8 Allergy status to other drugs, medicaments and biological substances; Z88.6 Allergy status to analgesic agent; Z79.899 Other long term (current) drug therapy
CPT/HCPCS: 36415; 36558; 71045; 77001; 80053; 85025; 85610; 85730; 93005; 96365; 96375; 99284; C1750; J3010; J3490; Q0163; Z7610

== ENCOUNTER 2019-03-20 00:18 | Emergency (ER) | payer MEDICARE ==
[~2019-03-20] VITALS: Ht 172.7 cm; Wt 109.0 kg
[2019-03-20 01:56] LABS: EOSINOPHILS % 1.8 % (0.0-5.0); HEMATOCRIT. 36.2 % (36.0-48.0); HEMOGLOBIN. 11.6 g/dL (12.0-16.0); LYMPHOCYTES % 22.8 % (20.0-50.0); MEAN CORPUSCULAR HEMOGLOBIN 27.3 pg (28.0-32.0); MEAN PLATELET VOLUME 8.2 fl (7.4-10.4); NEUTROPHILS % 64.4 % (40.0-76.0); PLATELET 173 x1000/uL (130-400); RED BLOOD CELL COUNT 4.27 mill/uL (4.2-5.4); RED CELL DISTRIBUTION WIDTH 18.5 % (11.6-14.6)
[2019-03-20 02:01] LABS: CHLORIDE 101 mEq/L (98-107)
[2019-03-20 02:36] VITALS: BP 125/88
== END 2019-03-20 02:40 | disposition home or self-care (01) ==
LOC: ER 01:22
DX: R07.89 Other chest pain (principal); Q61.3 Polycystic kidney, unspecified; Z99.2 Dependence on renal dialysis; Z98.890 Other specified postprocedural states; Z79.899 Other long term (current) drug therapy; Z88.1 Allergy status to other antibiotic agents; Z88.8 Allergy status to other drugs, medicaments and biological substances
CPT/HCPCS: 36415; 71045; 80048; 84484; 93005; 99284

== ENCOUNTER 2019-04-27 04:58 | Inpatient (IN) | payer MEDICARE ==
[~2019-04-27] VITALS: Ht 167.6 cm; Wt 111.8 kg
[2019-04-27] VITALS (16 sets, daily range): BP systolic 120–157; BP diastolic 68–92
[2019-04-27 06:40] LABS: BASOPHILS % 0.9 % (0.0-2.0); EOSINOPHILS % 1.7 % (0.0-5.0); LYMPHOCYTES % 12.8 % (20.0-50.0); MEAN CORPUSCULAR HEMOGLOBIN 29.2 pg (28.0-32.0); MEAN CORPUSCULAR VOLUME 86.4 fL (81.0-99.0); MEAN PLATELET VOLUME 7.7 fl (7.4-10.4); MONOCYTES % 8.5 % (2.0-8.0); NEUTROPHILS % 76.1 % (40.0-76.0); PLATELET 443 x1000/uL (130-400); RED BLOOD CELL COUNT 2.39 mill/uL (4.2-5.4); RED CELL DISTRIBUTION WIDTH 16.7 % (11.6-14.6)
[2019-04-27 06:43] LABS: CHLORIDE 105 mEq/L (98-107)
[2019-04-27 06:44] LABS: PROTHROMBIN TIME 20.3 sec (9.6-11.0)
[2019-04-27 06:48] LABS: HEMATOCRIT. 20.6 % (36.0-48.0)
[2019-04-27 07:07] LABS: HCG SCREEN NEGATIVE
[2019-04-27] MEDS ORDERED: CLINDAMYCIN 600MG PREMIX 50 ML IV SCH (08:00)
[2019-04-27] MEDS ORDERED: SODIUM BICARBONATE 4% (2.4MEQ) 5ML VIAL IV ONE ×2 (08:05→15:19)
[2019-04-27] MEDS ORDERED: LIDOCAINE HCL/EPINEPHRINE 1%-EPI 1:100,000 20 ML VIAL ONE (08:05)
[2019-04-27] MEDS ORDERED: LIDOCAINE HCL 1% 20ML VIAL (Pyxis) INJ ONE (08:06)
[2019-04-27] MEDS ORDERED: FENTANYL CITRATE/PF 50MCG/ML 2ML VIAL ONE (08:07)
[2019-04-27] MEDS ORDERED: MIDAZOLAM HCL 2 MG/2 ML VIAL ONE (08:07)
[2019-04-27] MEDS ORDERED: HEPARIN 1000 UNITS/ML 10ML ONE (08:57)
[2019-04-27] MEDS ORDERED: FENTANYL CITRATE/PF 50MCG/ML 2ML VIAL IV ONE (09:15)
[2019-04-27] MEDS ORDERED: ONDANSETRON HCL 4MG/2ML INJ IV PRN (13:00)
[2019-04-27] MEDS ORDERED: ACETAMINOPHEN 325MG TABLET PO PRN (13:00)
[2019-04-27] MEDS: NIFEDIPINE XL 60MG TAB PO SCH (13:00)
[2019-04-27] MEDS ORDERED: MORPHINE SULFATE 2 MG/ML CPJ (NOT FOR IM USE) IV NR (13:30)
[2019-04-27] MEDS ORDERED: MORPHINE SULFATE 2 MG/ML CPJ (NOT FOR IM USE) IV SCH (13:45)
[2019-04-27] MEDS ORDERED: CLONIDINE 0.1MG TABLET PO PRN (15:15)
[2019-04-27] MEDS: HYDROCODONE/ACETAMINOPHEN 10/325MG TABLET PO PRN ×2 (15:58→22:07)
[2019-04-27] MEDS: MORPHINE SULFATE 2 MG/ML CPJ (NOT FOR IM USE) IV PRN ×2 (18:13→22:44)
[2019-04-27] MEDS ORDERED: HEPARIN SODIUM 1,000 UNIT/1ML VIAL IV NR (21:42)
[2019-04-27] MEDS: HYDRALAZINE HCL 50MG TABLET PO SCH (23:44)
[2019-04-28] VITALS: BP 161/85
[2019-04-28 03:23] LABS: CLARITY URINE TURBID (CLEAR); COLOR URINE AMBER (YELLOW); KETONES URINE NEGATIVE (NEGATIVE); LEUKOCYTE ESTERASE URINE 2+ (NEGATIVE); NITRITE URINE NEGATIVE (NEGATIVE); OCCULT BLOOD URINE 3+ (NEGATIVE); PROTEIN URINE 2+ (NEGATIVE); UROBILINOGEN URINE 0.2 E.U./dL (0.2-1.0)
[2019-04-28 04:00] VITALS: BP 128/78
[2019-04-28] MEDS: HYDRALAZINE HCL 50MG TABLET PO SCH ×3 (05:00→21:01)
[2019-04-28] MEDS: MORPHINE SULFATE 2 MG/ML CPJ (NOT FOR IM USE) IV PRN ×4 (05:04→19:14)
[2019-04-28 06:36] LABS: BASOPHILS % 0.5 % (0.0-2.0); EOSINOPHILS % 0.9 % (0.0-5.0); HEMATOCRIT. 25.9 % (36.0-48.0); HEMOGLOBIN. 8.7 g/dL (12.0-16.0); LYMPHOCYTES % 10.9 % (20.0-50.0); MEAN CORPUSCULAR HEMOGLOBIN 28.4 pg (28.0-32.0); MEAN CORPUSCULAR VOLUME 84.6 fL (81.0-99.0); MEAN PLATELET VOLUME 8.2 fl (7.4-10.4); NEUTROPHILS % 77.7 % (40.0-76.0); PLATELET 447 x1000/uL (130-400); RED BLOOD CELL COUNT 3.06 mill/uL (4.2-5.4); RED CELL DISTRIBUTION WIDTH 17.6 % (11.6-14.6)
[2019-04-28 08:00] VITALS: BP 130/68
[2019-04-28] MEDS: NIFEDIPINE XL 60MG TAB PO SCH (10:06)
[2019-04-28] MEDS ORDERED: LEVOFLOXACIN 250MG PREMIX 50 ML IV SCH (10:15)
[2019-04-28] MEDS: HYDROCODONE/ACETAMINOPHEN 10/325MG TABLET PO PRN ×2 (11:33→17:46)
[2019-04-28] MEDS ORDERED: SODIUM BICARBONATE 4% (2.4MEQ) 5ML VIAL IV ONE (11:51)
[2019-04-28] MEDS ORDERED: LIDOCAINE HCL 1% 20ML VIAL (Pyxis) INJ ONE (11:52)
[2019-04-28 12:00] VITALS: BP 130/69
[2019-04-28] MEDS ORDERED: LEVOFLOXACIN 500MG PREMIX 100 ML IV SCH (12:00)
[2019-04-28] MEDS ORDERED: IOHEXOL-350 100 ML BOTTLE ONE (14:22)
[2019-04-28 16:00] VITALS: BP 139/69
[2019-04-28] MEDS: IRON SUCROSE COMPLEX 100 MG/5 ML ML IV SCH (19:14)
[2019-04-28 20:00] VITALS: BP 144/86
[2019-04-28] MEDS: LORAZEPAM 2MG/ML CPJ IV PRN (20:26)
[2019-04-28 20:48] LABS: HEMATOCRIT 26.5 % (36.0-48.0); HEMOGLOBIN 8.8 g/dL (12.0-16.0)
[2019-04-28 21:00] LABS: INR 3.2; PROTHROMBIN TIME 31.6 sec (9.6-11.0)
[2019-04-28] MEDS ORDERED: METOPROLOL TARTRATE 50MG TABLET PO SCH (21:00)
[2019-04-29] VITALS: BP 127/76
[2019-04-29] MEDS: MORPHINE SULFATE 2 MG/ML CPJ (NOT FOR IM USE) IV PRN ×4 (00:11→21:19)
[2019-04-29 04:00] VITALS: BP 119/65
[2019-04-29] MEDS: HYDRALAZINE HCL 50MG TABLET PO SCH ×3 (06:12→21:19)
[2019-04-29 06:52] LABS: BASOPHILS % 0.4 % (0.0-2.0); HEMATOCRIT. 25.5 % (36.0-48.0); HEMOGLOBIN. 8.4 g/dL (12.0-16.0); LYMPHOCYTES % 10.8 % (20.0-50.0); MEAN CORPUSCULAR HEMOGLOBIN 27.6 pg (28.0-32.0); MEAN CORPUSCULAR VOLUME 84.1 fL (81.0-99.0); MEAN PLATELET VOLUME 7.8 fl (7.4-10.4); MONOCYTES % 11.3 % (2.0-8.0); NEUTROPHILS % 76.5 % (40.0-76.0); PLATELET 421 x1000/uL (130-400); RED BLOOD CELL COUNT 3.03 mill/uL (4.2-5.4); RED CELL DISTRIBUTION WIDTH 17.6 % (11.6-14.6)
[2019-04-29 06:54] LABS: INR 2.8; PROTHROMBIN TIME 27.8 sec (9.6-11.0)
[2019-04-29 08:00] VITALS: BP 126/71
[2019-04-29] MEDS: IRON SUCROSE COMPLEX 100 MG/5 ML ML IV SCH (09:11)
[2019-04-29] MEDS: METOPROLOL TARTRATE 25MG TABLET PO SCH ×2 (09:15→21:19)
[2019-04-29] MEDS: HYDROCODONE/ACETAMINOPHEN 10/325MG TABLET PO PRN ×2 (09:23→18:00)
[2019-04-29] MEDS: LORAZEPAM 2MG/ML CPJ IV PRN (11:05)
[2019-04-29] MEDS ORDERED: HEPARIN SODIUM 1,000 UNIT/1ML VIAL IV NR (11:15)
[2019-04-29 12:00] VITALS: BP 137/62
[2019-04-29 16:00] VITALS: BP 129/78
[2019-04-29 20:00] VITALS: BP 120/69
[2019-04-30] VITALS (7 sets, daily range): BP systolic 108–138; BP diastolic 59–88
[2019-04-30] MEDS: HYDROCODONE/ACETAMINOPHEN 10/325MG TABLET PO PRN ×2 (02:13→14:15)
[2019-04-30] MEDS: LORAZEPAM 2MG/ML CPJ IV PRN ×2 (02:22→20:40)
[2019-04-30] MEDS: HYDRALAZINE HCL 50MG TABLET PO SCH ×3 (06:42→20:40)
[2019-04-30 07:13] LABS: BASOPHILS % 0.7 % (0.0-2.0); EOSINOPHILS % 1.5 % (0.0-5.0); HEMATOCRIT. 25.9 % (36.0-48.0); HEMOGLOBIN. 8.5 g/dL (12.0-16.0); LYMPHOCYTES % 14.3 % (20.0-50.0); MEAN CORPUSCULAR HEMOGLOBIN 27.9 pg (28.0-32.0); MEAN CORPUSCULAR VOLUME 85.4 fL (81.0-99.0); MONOCYTES % 10.9 % (2.0-8.0); NEUTROPHILS % 72.6 % (40.0-76.0); PLATELET 372 x1000/uL (130-400); RED BLOOD CELL COUNT 3.03 mill/uL (4.2-5.4); RED CELL DISTRIBUTION WIDTH 17.7 % (11.6-14.6)
[2019-04-30] MEDS: METOPROLOL TARTRATE 25MG TABLET PO SCH ×2 (09:14→20:40)
[2019-04-30] MEDS: IRON SUCROSE COMPLEX 100 MG/5 ML ML IV SCH (09:14)
[2019-04-30] MEDS: MORPHINE SULFATE 2 MG/ML CPJ (NOT FOR IM USE) IV PRN ×2 (09:30→17:52)
[2019-04-30] MEDS: LEVOFLOXACIN 250MG PREMIX 50 ML IV SCH (11:30)
[2019-05-01] VITALS (7 sets, daily range): BP systolic 121–137; BP diastolic 66–84
[2019-05-01] MEDS: HYDROCODONE/ACETAMINOPHEN 10/325MG TABLET PO PRN ×2 (02:40→16:21)
[2019-05-01] MEDS: MORPHINE SULFATE 2 MG/ML CPJ (NOT FOR IM USE) IV PRN ×3 (05:39→19:52)
[2019-05-01] MEDS: HYDRALAZINE HCL 50MG TABLET PO SCH ×3 (05:45→21:43)
[2019-05-01 09:42] LABS: BASOPHILS % 0.7 % (0.0-2.0); EOSINOPHILS % 1.6 % (0.0-5.0); HEMATOCRIT. 24.5 % (36.0-48.0); LYMPHOCYTES % 12.5 % (20.0-50.0); MEAN PLATELET VOLUME 7.9 fl (7.4-10.4); MONOCYTES % 10.9 % (2.0-8.0); NEUTROPHILS % 74.3 % (40.0-76.0); PLATELET 349 x1000/uL (130-400); RED BLOOD CELL COUNT 2.85 mill/uL (4.2-5.4); RED CELL DISTRIBUTION WIDTH 17.6 % (11.6-14.6)
[2019-05-01] MEDS: METOPROLOL TARTRATE 25MG TABLET PO SCH ×2 (09:45→21:43)
[2019-05-01 09:48] LABS: PROTHROMBIN TIME 19.8 sec (9.6-11.0)
[2019-05-01 11:32] LABS: PHOSPHORUS 4.8 mg/dL (2.5-4.9)
[2019-05-01] MEDS ORDERED: DIPHENHYDRAMINE 50MG/ML VIAL IV PRN (12:00)
[2019-05-01] MEDS ORDERED: HEPARIN SODIUM 1,000 UNIT/1ML VIAL IV NR (12:45)
[2019-05-02] VITALS: BP 121/65
[2019-05-02] MEDS: LORAZEPAM 2MG/ML CPJ IV PRN ×3 (02:28→14:45)
[2019-05-02] MEDS: MORPHINE SULFATE 2 MG/ML CPJ (NOT FOR IM USE) IV PRN ×6 (02:28→23:08)
[2019-05-02 04:00] VITALS: BP 129/71
[2019-05-02] MEDS: HYDRALAZINE HCL 50MG TABLET PO SCH ×3 (05:47→21:28)
[2019-05-02 07:52] VITALS: BP 119/63
[2019-05-02] MEDS: METOPROLOL TARTRATE 25MG TABLET PO SCH ×2 (09:00→21:29)
[2019-05-02] MEDS: HYDROCODONE/ACETAMINOPHEN 10/325MG TABLET PO PRN (09:36)
[2019-05-02] MEDS: LEVOFLOXACIN 250MG PREMIX 50 ML IV SCH (10:27)
[2019-05-02 12:00] VITALS: BP 137/79
[2019-05-02 16:00] VITALS: BP 151/94
[2019-05-02] MEDS: DOCUSATE SODIUM 100MG CAPSULE PO SCH ×2 (16:16→17:10)
[2019-05-02] MEDS ORDERED: HYDROCODONE/ACETAMINOPHEN 10/325MG TABLET PO PRN (16:45)
[2019-05-02 20:00] VITALS: BP 169/106
[2019-05-02] MEDS ORDERED: DIAZEPAM 5 MG TABLET PO SCH (21:00)
[2019-05-03] VITALS: BP 116/68
[2019-05-03 04:00] VITALS: BP 120/70
[2019-05-03] MEDS: HYDRALAZINE HCL 50MG TABLET PO SCH (06:49)
[2019-05-03 08:00] VITALS: BP 125/76
[2019-05-03 08:02] LABS: INR 1.7; PROTHROMBIN TIME 17.1 sec (9.6-11.0)
[2019-05-03 08:19] LABS: BASOPHILS % 0.8 % (0.0-2.0); EOSINOPHILS % 0.9 % (0.0-5.0); HEMATOCRIT. 24.8 % (36.0-48.0); HEMOGLOBIN. 8.1 g/dL (12.0-16.0); LYMPHOCYTES % 15.4 % (20.0-50.0); MEAN CORPUSCULAR HEMOGLOBIN 28.3 pg (28.0-32.0); MEAN PLATELET VOLUME 8.2 fl (7.4-10.4); MONOCYTES % 10.8 % (2.0-8.0); NEUTROPHILS % 72.1 % (40.0-76.0); PLATELET 330 x1000/uL (130-400); RED BLOOD CELL COUNT 2.88 mill/uL (4.2-5.4); RED CELL DISTRIBUTION WIDTH 17.4 % (11.6-14.6)
[2019-05-03] MEDS: DOCUSATE SODIUM 100MG CAPSULE PO SCH (08:57)
[2019-05-03] MEDS: METOPROLOL TARTRATE 25MG TABLET PO SCH (08:57)
[2019-05-03] MEDS: MORPHINE SULFATE 2 MG/ML CPJ (NOT FOR IM USE) IV PRN (08:57)
[2019-05-03] MEDS ORDERED: APIXABAN 5 MG TABLET PO SCH (09:00)
[2019-05-03 12:00] VITALS: BP 125/66
[2019-05-03 12:37] VITALS: BP 125/66
[2019-05-03 12:57] LABS: TOTAL IRON BINDING CAPACITY 134 ug/dL (250-450)
[2019-05-03] MEDS ORDERED: RIVAROXABAN 15 MG TABLET PO SCH (17:00)
[2019-05-03] MEDS ORDERED: METOPROLOL TARTRATE 100MG TABLET PO SCH (21:00)
== END 2019-05-03 13:40 | disposition home or self-care (01) | DRG 314 ==
LOC: ER 04:58 → 8WST 09:09 → ENRESERV 09:51
PROVIDERS: ADMIT Internal Medicine Nephrology; ATTEND Internal Medicine Nephrology
PROC: 30233N1 Transfusion of Nonautologous Red Blood Cells into Peripheral Vein, Percutaneous Approach (ICD-10-PCS; principal; 2019-04-27)
PROC: 5A1D70Z Performance of Urinary Filtration, Intermittent, Less than 6 Hours Per Day (ICD-10-PCS; 2019-04-27)
PROC: 02PYX3Z Removal of Infusion Device from Great Vessel, External Approach (ICD-10-PCS; 2019-04-27)
PROC: 02HV33Z Insertion of Infusion Device into Superior Vena Cava, Percutaneous Approach (ICD-10-PCS; 2019-04-28)
PROC: B5181ZA Fluoroscopy of Superior Vena Cava using Low Osmolar Contrast, Guidance (ICD-10-PCS; 2019-04-28)
PROC: B548ZZA Ultrasonography of Superior Vena Cava, Guidance (ICD-10-PCS; 2019-04-28)
PROC: 5A1D70Z Performance of Urinary Filtration, Intermittent, Less than 6 Hours Per Day (ICD-10-PCS; 2019-04-29)
PROC: 5A1D70Z Performance of Urinary Filtration, Intermittent, Less than 6 Hours Per Day (ICD-10-PCS; 2019-05-01)
DX: T82.41XA Breakdown (mechanical) of vascular dialysis catheter, initial encounter (principal); A41.9 Sepsis, unspecified organism; E43 Unspecified severe protein-calorie malnutrition; N18.6 End stage renal disease; D68.59 Other primary thrombophilia; I12.0 Hypertensive chronic kidney disease with stage 5 chronic kidney disease or end stage renal disease; N39.0 Urinary tract infection, site not specified; J98.11 Atelectasis; Q61.3 Polycystic kidney, unspecified; D68.9 Coagulation defect, unspecified; E11.319 Type 2 diabetes mellitus with unspecified diabetic retinopathy without macular edema; E11.22 Type 2 diabetes mellitus with diabetic chronic kidney disease; E66.9 Obesity, unspecified; T45.515A Adverse effect of anticoagulants, initial encounter; D64.9 Anemia, unspecified; H54.8 Legal blindness, as defined in USA; H35.039 Hypertensive retinopathy, unspecified eye; F17.200 Nicotine dependence, unspecified, uncomplicated; Y83.8 Other surgical procedures as the cause of abnormal reaction of the patient, or of later complication, without mention of misadventure at the time of the procedure; R31.0 Gross hematuria; Z79.01 Long term (current) use of anticoagulants; Z82.49 Family history of ischemic heart disease and other diseases of the circulatory system; Z86.711 Personal history of pulmonary embolism; Z82.71 Family history of polycystic kidney; Z99.2 Dependence on renal dialysis; Z88.1 Allergy status to other antibiotic agents; Y92.89 Other specified places as the place of occurrence of the external cause; Z71.3 Dietary counseling and surveillance; Z68.39 Body mass index [BMI] 39.0-39.9, adult; Z79.84 Long term (current) use of oral hypoglycemic drugs
CPT/HCPCS: 36415; 36573; 36581; 71045; 71275; 77001; 80048; 81003; 82728; 83540; 83550; 83735; 84100; 84439; 84443; 84703; 85014; 85018; 86850; 86900; 86920; 93005; 93306; 93970; 99152; 99153; 99285; C1725; C1769; J1200; J1644; J1956; J2060; J2250; J2270; J3010; J3490; P9016; Q9967; G0500

== ENCOUNTER 2019-05-12 19:24 | Inpatient (IN) | payer MEDICARE ==
[~2019-05-12] VITALS: Ht 172.7 cm; Wt 112.5 kg
[~2019-05-12 19:24] MED LIST changes: -POTA20TA82 PO
[2019-05-12] MEDS ORDERED: SODIUM CHLORIDE 0.9% 1,000 ML IV ONE (21:56)
[2019-05-12] MEDS ORDERED: MORPHINE SULFATE 4 MG/ML CPJ (NOT FOR IM USE) IV STA (21:56)
[2019-05-12] MEDS ORDERED: ONDANSETRON HCL 4MG/2ML INJ IV STA (21:56)
[2019-05-12 22:36] LABS: BASOPHILS % 0.9 % (0.0-2.0); EOSINOPHILS % 2.4 % (0.0-5.0); HEMATOCRIT. 23.1 % (36.0-48.0); HEMOGLOBIN. 7.6 g/dL (12.0-16.0); LYMPHOCYTES % 19.7 % (20.0-50.0); MEAN CORPUSCULAR HEMOGLOBIN 28.2 pg (28.0-32.0); MEAN CORPUSCULAR VOLUME 86.4 fL (81.0-99.0); MEAN PLATELET VOLUME 8.7 fl (7.4-10.4); MONOCYTES % 11.4 % (2.0-8.0); NEUTROPHILS % 65.6 % (40.0-76.0); PLATELET 381 x1000/uL (130-400); RED BLOOD CELL COUNT 2.67 mill/uL (4.2-5.4); RED CELL DISTRIBUTION WIDTH 18.1 % (11.6-14.6)
[2019-05-12 22:41] LABS: CHLORIDE 104 mEq/L (98-107)
[2019-05-12 22:43] LABS: CLARITY URINE CLOUDY (CLEAR); COLOR URINE ORANGE (YELLOW); KETONES URINE NEGATIVE (NEGATIVE); LEUKOCYTE ESTERASE URINE 2+ (NEGATIVE); NITRITE URINE NEGATIVE (NEGATIVE); OCCULT BLOOD URINE 3+ (NEGATIVE); PH URINE 6.5 (4.5-8.0); PROTEIN URINE 2+ (NEGATIVE); SPECIFIC GRAVITY URINE 1.011 (1.005-1.030); UROBILINOGEN URINE 0.2 E.U./dL (0.2-1.0)
[2019-05-12 22:46] LABS: HCG SCREEN NEGATIVE
[2019-05-12 22:48] LABS: INR 1.2; PARTIAL THROMBOPLASTIN TIME 37.6 sec (23.4-31.0); PROTHROMBIN TIME 12.4 sec (9.6-11.0)
[2019-05-12] MEDS ORDERED: LEVOFLOXACIN 750MG PREMIX 150 ML IV ONE (23:00)
[2019-05-12] MEDS ORDERED: SODIUM CHLORIDE 0.9% 1000ML BAG (SEPSIS BOLUS) IV ONE (23:00)
[2019-05-13] VITALS (30 sets, daily range): BP systolic 134–170; BP diastolic 57–102
[2019-05-13] MEDS ORDERED: TRANEXAMIC ACID 1,000 MG/10 ML IV ONE
[2019-05-13] MEDS ORDERED: MORPHINE SULFATE 4 MG/ML CPJ (NOT FOR IM USE) IV ONE (00:15)
[2019-05-13] MEDS ORDERED: TRANEXAMIC ACID 1,500 MG in SODIUM CHLORIDE 0.9% 100 ML IV SCH (00:30)
[2019-05-13 03:51] LABS: BASOPHILS % 0.7 % (0.0-2.0); EOSINOPHILS % 2.9 % (0.0-5.0); HEMOGLOBIN. 7.9 g/dL (12.0-16.0); LYMPHOCYTES % 24.7 % (20.0-50.0); MEAN PLATELET VOLUME 8.2 fl (7.4-10.4); MONOCYTES % 9.7 % (2.0-8.0); PLATELET 326 x1000/uL (130-400); RED BLOOD CELL COUNT 2.73 mill/uL (4.2-5.4); RED CELL DISTRIBUTION WIDTH 17.2 % (11.6-14.6)
[2019-05-13] MEDS ORDERED: MORPHINE SULFATE 2 MG/ML CPJ (NOT FOR IM USE) IV PRN (06:05)
[2019-05-13] MEDS ORDERED: LEVOFLOXACIN 250MG PREMIX 50 ML IV SCH (09:00)
[2019-05-13] MEDS: HYDROMORPHONE HCL/PF 2MG/ML CPJ IV PRN ×2 (09:40→19:29)
[2019-05-13] MEDS ORDERED: ACETAMINOPHEN 325MG TABLET PO PRN (10:30)
[2019-05-13] MEDS ORDERED: HEPARIN SODIUM 1,000 UNIT/1ML VIAL IV NR (12:15)
[2019-05-13] MEDS: NIFEDIPINE XL 60MG TAB PO SCH (14:13)
[2019-05-13] MEDS: HYDROCODONE/ACETAMINOPHEN 5/325MG TABLET PO PRN (14:13)
[2019-05-13] MEDS: ONDANSETRON HCL 4MG/2ML INJ IV PRN (19:23)
[2019-05-14] VITALS (15 sets, daily range): BP systolic 136–167; BP diastolic 74–103
[2019-05-14] MEDS: HYDROMORPHONE HCL/PF 2MG/ML CPJ IV PRN ×3 (01:41→21:19)
[2019-05-14 04:53] LABS: BASOPHILS % 0.8 % (0.0-2.0); EOSINOPHILS % 2.4 % (0.0-5.0); HEMATOCRIT. 25.1 % (36.0-48.0); HEMOGLOBIN. 8.2 g/dL (12.0-16.0); LYMPHOCYTES % 14.9 % (20.0-50.0); MEAN CORPUSCULAR HEMOGLOBIN 28.6 pg (28.0-32.0); MEAN CORPUSCULAR VOLUME 87.3 fL (81.0-99.0); MEAN PLATELET VOLUME 8.1 fl (7.4-10.4); MONOCYTES % 10.2 % (2.0-8.0); NEUTROPHILS % 71.7 % (40.0-76.0); PLATELET 344 x1000/uL (130-400); RED BLOOD CELL COUNT 2.87 mill/uL (4.2-5.4)
[2019-05-14] MEDS: HYDROCODONE/ACETAMINOPHEN 5/325MG TABLET PO PRN (06:48)
[2019-05-14] MEDS ORDERED: METO25TA6 PO (07:23)
[2019-05-14] MEDS: NIFEDIPINE XL 60MG TAB PO SCH (09:24)
[2019-05-14] MEDS: METOPROLOL TARTRATE 50MG TABLET PO SCH ×2 (09:24→21:18)
[2019-05-14] MEDS ORDERED: LEVOFLOXACIN 250MG PREMIX 50 ML IV SCH (11:00)
[2019-05-14] MEDS: LEVOFLOXACIN 250MG PREMIX 50 ML IV SCH ×2 (14:00→18:01)
[2019-05-14] MEDS: HYDRALAZINE HCL 50MG TABLET PO SCH ×2 (15:12→21:18)
[2019-05-14] MEDS: LORAZEPAM 2MG/ML CPJ IV PRN (20:01)
[2019-05-15] VITALS: BP 139/87
[2019-05-15] MEDS: HYDROMORPHONE HCL/PF 2MG/ML CPJ IV PRN ×4 (03:31→21:38)
[2019-05-15 04:00] VITALS: BP 127/72
[2019-05-15] MEDS: LORAZEPAM 2MG/ML CPJ IV PRN ×3 (05:06→20:41)
[2019-05-15] MEDS: HYDRALAZINE HCL 50MG TABLET PO SCH ×3 (05:07→20:41)
[2019-05-15 07:29] LABS: BASOPHILS % 0.5 % (0.0-2.0); EOSINOPHILS % 1.8 % (0.0-5.0); HEMATOCRIT. 26.2 % (36.0-48.0); HEMOGLOBIN. 8.6 g/dL (12.0-16.0); LYMPHOCYTES % 15.5 % (20.0-50.0); MEAN CORPUSCULAR HEMOGLOBIN 28.5 pg (28.0-32.0); MEAN CORPUSCULAR VOLUME 87.1 fL (81.0-99.0); MEAN PLATELET VOLUME 8.1 fl (7.4-10.4); MONOCYTES % 8.9 % (2.0-8.0); NEUTROPHILS % 73.3 % (40.0-76.0); PLATELET 386 x1000/uL (130-400); RED BLOOD CELL COUNT 3.01 mill/uL (4.2-5.4); RED CELL DISTRIBUTION WIDTH 17.5 % (11.6-14.6)
[2019-05-15 08:00] VITALS: BP 142/71
[2019-05-15] MEDS: NIFEDIPINE XL 60MG TAB PO SCH (09:00)
[2019-05-15] MEDS: METOPROLOL TARTRATE 50MG TABLET PO SCH ×2 (09:00→20:40)
[2019-05-15] MEDS: ONDANSETRON HCL 4MG/2ML INJ IV PRN (09:01)
[2019-05-15 12:00] VITALS: BP 173/87
[2019-05-15] MEDS: APIXABAN 5 MG TABLET PO SCH ×2 (13:10→18:18)
[2019-05-15 16:00] VITALS: BP 145/78
[2019-05-15] MEDS ORDERED: DIPHENHYDRAMINE 50MG CAPSULE PO PRN (18:00)
[2019-05-15 20:00] VITALS: BP 147/77
[2019-05-16] VITALS: BP 122/68
[2019-05-16] MEDS: HYDROMORPHONE HCL/PF 2MG/ML CPJ IV PRN ×2 (03:01→09:01)
[2019-05-16 04:00] VITALS: BP 116/63
[2019-05-16] MEDS: HYDRALAZINE HCL 50MG TABLET PO SCH (06:57)
[2019-05-16 08:00] VITALS: BP 147/89
[2019-05-16] MEDS: METOPROLOL TARTRATE 50MG TABLET PO SCH (09:00)
[2019-05-16] MEDS: APIXABAN 5 MG TABLET PO SCH (09:00)
[2019-05-16] MEDS: NIFEDIPINE XL 60MG TAB PO SCH (09:00)
[2019-05-16 10:51] VITALS: BP 147/89
== END 2019-05-16 12:10 | disposition home or self-care (01) | DRG 871 ==
LOC: ER 19:24 → MICUSO 05-13 00:26 → EDBEDREQTM 05-13 00:29 → EDBEDREQ 05-13 00:29 → EDBEDREQSVC 05-13 00:29 → ENRESERV 05-13 07:27 → 6WST 05-14 12:32
PROVIDERS: ADMIT Internal Medicine; ATTEND Internal Medicine
PROC: 5A1D70Z Performance of Urinary Filtration, Intermittent, Less than 6 Hours Per Day (ICD-10-PCS; principal; 2019-05-13)
PROC: 5A1D70Z Performance of Urinary Filtration, Intermittent, Less than 6 Hours Per Day (ICD-10-PCS; 2019-05-14)
DX: A41.9 Sepsis, unspecified organism (principal); E43 Unspecified severe protein-calorie malnutrition; K85.90 Acute pancreatitis without necrosis or infection, unspecified; N18.6 End stage renal disease; K66.1 Hemoperitoneum; N39.0 Urinary tract infection, site not specified; I12.0 Hypertensive chronic kidney disease with stage 5 chronic kidney disease or end stage renal disease; F41.9 Anxiety disorder, unspecified; D64.9 Anemia, unspecified; E66.9 Obesity, unspecified; E87.6 Hypokalemia; N28.1 Cyst of kidney, acquired; Z99.2 Dependence on renal dialysis; Z86.711 Personal history of pulmonary embolism; Z68.37 Body mass index [BMI] 37.0-37.9, adult; Z79.899 Other long term (current) drug therapy; Z88.8 Allergy status to other drugs, medicaments and biological substances; Z88.1 Allergy status to other antibiotic agents; Z79.01 Long term (current) use of anticoagulants
CPT/HCPCS: 36415; 71045; 74176; 80048; 81003; 83605; 84484; 84703; 86850; 86900; 86920; 93005; 99291; J1170; J1644; J1956; J2060; J2270; J2405; J7030; J7050; P9016; Q0163

== ENCOUNTER 2019-10-14 19:48 | Emergency (ER) | payer MEDICARE ==
[~2019-10-14] VITALS: Ht 172.7 cm; Wt 117.0 kg
[~2019-10-14 19:48] MED LIST changes: +METO25TA6 PO; -NIFE90TA34 PO; +NIFE90TA60 PO
[2019-10-14 20:06] VITALS: BP 160/91
== END 2019-10-15 00:26 | disposition left against medical advice (07) ==
LOC: ER 19:48
DX: Z53.21 Procedure and treatment not carried out due to patient leaving prior to being seen by health care provider (principal)
CPT/HCPCS: 93005

== ENCOUNTER 2020-04-16 17:55 | Emergency (ER) | payer MEDICARE ==
[~2020-04-16] VITALS: Ht 172.7 cm; Wt 118.0 kg
[2020-04-16] MEDS ORDERED: HYDROCODONE/ACETAMINOPHEN 5/325MG TABLET PO STA (18:20)
[2020-04-16] MEDS ORDERED: ONDANSETRON 4MG ODT PO STA (18:20)
[2020-04-16 19:05] LABS: BASOPHILS % 1.4 % (0.0-2.0); EOSINOPHILS % 1.9 % (0.0-5.0); HEMATOCRIT. 35.9 % (36.0-48.0); HEMOGLOBIN. 11.5 g/dL (12.0-16.0); LYMPHOCYTES % 30.3 % (20.0-50.0); MEAN CORPUSCULAR HEMOGLOBIN 27.7 pg (28.0-32.0); MEAN CORPUSCULAR VOLUME 86.7 fL (81.0-99.0); MEAN PLATELET VOLUME 7.9 fl (7.4-10.4); MONOCYTES % 9.1 % (2.0-8.0); NEUTROPHILS % 57.3 % (40.0-76.0); PLATELET 273 x1000/uL (130-400); RED BLOOD CELL COUNT 4.15 mill/uL (4.2-5.4); RED CELL DISTRIBUTION WIDTH 17.5 % (11.6-14.6)
[2020-04-16 19:14] LABS: CHLORIDE 100 mEq/L (98-107)
[2020-04-16] MEDS ORDERED: ONDANSETRON HCL 4MG/2ML INJ IV ONE (19:15)
[2020-04-16] MEDS ORDERED: MORPHINE SULFATE 4 MG/ML CPJ (NOT FOR IM USE) IV ONE (19:15)
[2020-04-16] MEDS ORDERED: DIPHENHYDRAMINE 25MG CAPSULE PO ONE (19:30)
[2020-04-16 19:38] VITALS: BP 133/85
== END 2020-04-16 21:05 | disposition home or self-care (01) ==
LOC: ER 17:55 → CANBEDREQ 22:44
DX: R07.89 Other chest pain (principal); M54.89 Other dorsalgia; I12.0 Hypertensive chronic kidney disease with stage 5 chronic kidney disease or end stage renal disease; N18.6 End stage renal disease; Q61.3 Polycystic kidney, unspecified; Z99.2 Dependence on renal dialysis; Z98.890 Other specified postprocedural states; Z88.1 Allergy status to other antibiotic agents; Z88.8 Allergy status to other drugs, medicaments and biological substances
CPT/HCPCS: 36415; 71045; 80053; 83880; 84484; 85025; 93005; 96374; 96375; 99285; J2270; J2405; Q0163; Q0162

== ENCOUNTER 2020-06-12 21:02 | Inpatient (IN) | payer MEDICARE ==
[~2020-06-12] VITALS: Ht 172.7 cm; Wt 128.0 kg
[2020-06-12 23:22] LABS: BASOPHILS % 0.3 % (0.0-2.0); EOSINOPHILS % 1.7 % (0.0-5.0); HEMATOCRIT. 32.9 % (36.0-48.0); HEMOGLOBIN. 10.7 g/dL (12.0-16.0); LYMPHOCYTES % 22.2 % (20.0-50.0); MEAN CORPUSCULAR HEMOGLOBIN 28.3 pg (28.0-32.0); MEAN CORPUSCULAR VOLUME 87.4 fL (81.0-99.0); MEAN PLATELET VOLUME 8.4 fl (7.4-10.4); MONOCYTES % 8.8 % (2.0-8.0); PLATELET 230 x1000/uL (130-400); RED BLOOD CELL COUNT 3.76 mill/uL (4.2-5.4)
[2020-06-12 23:24] LABS: CHLORIDE 100 mEq/L (98-107)
[2020-06-12 23:58] LABS: HCG SCREEN NEGATIVE
[2020-06-13] MEDS ORDERED: FENTANYL CITRATE/PF 50MCG/ML 2ML VIAL IV ONE
[2020-06-13] MEDS ORDERED: ASPIRIN 81MG TABLET PO ONE (00:15)
[2020-06-13] MEDS ORDERED: NITROGLYCERIN 0.4MG TABLET SL SL ONE (01:45)
[2020-06-13 04:00] VITALS: BP 168/85
[2020-06-13 04:57] VITALS: BP 168/85
[2020-06-13] MEDS ORDERED: CINA30 PO (05:00)
[2020-06-13] MEDS ORDERED: B50 PO (05:03)
[2020-06-13] MEDS ORDERED: METO-539 PO (05:03)
[2020-06-13] MEDS ORDERED: SEVE800T8 PO (05:03)
[2020-06-13] MEDS ORDERED: DIPHENHYDRAMINE 50MG/ML VIAL IM PRN (06:30)
[2020-06-13] MEDS ORDERED: ONDANSETRON HCL 4MG/2ML INJ IV PRN (06:30)
[2020-06-13] MEDS ORDERED: CLONIDINE 0.1MG TABLET PO PRN (06:30)
[2020-06-13] MEDS ORDERED: ACETAMINOPHEN 325MG TABLET PO PRN (06:30)
[2020-06-13 07:57] VITALS: BP 149/82
[2020-06-13] MEDS: HYDROCODONE/ACETAMINOPHEN 5/325MG TABLET PO PRN (08:44)
[2020-06-13] MEDS: SEVELAMER CARBONATE 800 MG TABLET PO SCH ×3 (08:44→17:56)
[2020-06-13] MEDS ORDERED: METOPROLOL TARTRATE 25MG TABLET PO SCH (09:00)
[2020-06-13] MEDS ORDERED: ENOXAPARIN 30MG/0.3ML SYR SUBCUT SCH (09:00)
[2020-06-13 10:16] LABS: BASOPHILS % 0.6 % (0.0-2.0); HEMATOCRIT. 31.9 % (36.0-48.0); LYMPHOCYTES % 25.6 % (20.0-50.0); MEAN CORPUSCULAR HEMOGLOBIN 28.3 pg (28.0-32.0); MEAN CORPUSCULAR VOLUME 90.6 fL (81.0-99.0); MONOCYTES % 10.8 % (2.0-8.0); RED BLOOD CELL COUNT 3.52 mill/uL (4.2-5.4); RED CELL DISTRIBUTION WIDTH 18.7 % (11.6-14.6)
[2020-06-13 12:00] VITALS: BP 127/71
[2020-06-13] MEDS: MORPHINE SULFATE 2 MG/ML CPJ (NOT FOR IM USE) IV PRN ×3 (14:32→23:25)
[2020-06-13 16:04] VITALS: BP 138/78
[2020-06-13] MEDS: CINACALCET HCL 30MG TABLET PO SCH (17:57)
[2020-06-13 20:00] VITALS: BP 134/78
[2020-06-13] MEDS: METOPROLOL TARTRATE 50MG TABLET PO SCH (21:29)
[2020-06-14 04:00] VITALS: BP 141/84
[2020-06-14 06:07] LABS: CHLORIDE 104 mEq/L (98-107)
[2020-06-14 06:26] LABS: BASOPHILS % 0.6 % (0.0-2.0); EOSINOPHILS % 2.7 % (0.0-5.0); HEMATOCRIT. 34.7 % (36.0-48.0); LYMPHOCYTES % 26.4 % (20.0-50.0); MEAN CORPUSCULAR HEMOGLOBIN 28.1 pg (28.0-32.0); MONOCYTES % 10.4 % (2.0-8.0); NEUTROPHILS % 59.9 % (40.0-76.0); PLATELET 229 x1000/uL (130-400); RED CELL DISTRIBUTION WIDTH 18.6 % (11.6-14.6)
[2020-06-14] MEDS: MORPHINE SULFATE 2 MG/ML CPJ (NOT FOR IM USE) IV PRN ×3 (06:38→18:21)
[2020-06-14 07:50] VITALS: BP 131/89
[2020-06-14] MEDS: APIXABAN 5 MG TABLET PO SCH ×2 (09:00→17:53)
[2020-06-14] MEDS: SEVELAMER CARBONATE 800 MG TABLET PO SCH ×3 (09:00→18:20)
[2020-06-14] MEDS: METOPROLOL TARTRATE 50MG TABLET PO SCH ×2 (09:05→22:38)
[2020-06-14] MEDS: HYDROCODONE/ACETAMINOPHEN 5/325MG TABLET PO PRN ×2 (09:11→22:22)
[2020-06-14] MEDS ORDERED: SODIUM BICARBONATE 4% (2.4MEQ) 5ML VIAL IV ONE (10:00)
[2020-06-14] MEDS ORDERED: LIDOCAINE HCL 1% 20ML VIAL (Pyxis) INJ ONE (10:01)
[2020-06-14] MEDS ORDERED: IOHEXOL-350 100 ML BOTTLE ONE (11:04)
[2020-06-14 12:48] VITALS: BP 138/85
[2020-06-14] MEDS ORDERED: LEVOFLOXACIN 500MG PREMIX 100 ML IV SCH ×2 (13:00→20:00)
[2020-06-14] MEDS ORDERED: AZITHROMYCIN 500 MG in DEXT 5% WATER 250 ML IV SCH (14:00)
[2020-06-14 16:25] VITALS: BP 154/89
[2020-06-14] MEDS: AZITHROMYCIN 500 MG in DEXT 5% WATER 250 ML IV SCH (17:00)
[2020-06-14] MEDS: CINACALCET HCL 30MG TABLET PO SCH (17:53)
[2020-06-14 20:00] VITALS: BP 143/92
[2020-06-15] VITALS (19 sets, daily range): BP systolic 103–134; BP diastolic 59–97
[2020-06-15] MEDS: MORPHINE SULFATE 2 MG/ML CPJ (NOT FOR IM USE) IV PRN ×3 (00:27→11:56)
[2020-06-15 07:10] LABS: BASOPHILS % 0.6 % (0.0-2.0); EOSINOPHILS % 3.9 % (0.0-5.0); HEMATOCRIT. 30.8 % (36.0-48.0); HEMOGLOBIN. 9.9 g/dL (12.0-16.0); LYMPHOCYTES % 25.8 % (20.0-50.0); MEAN CORPUSCULAR HEMOGLOBIN 28.1 pg (28.0-32.0); MEAN CORPUSCULAR VOLUME 87.9 fL (81.0-99.0); MEAN PLATELET VOLUME 8.3 fl (7.4-10.4); MONOCYTES % 10.7 % (2.0-8.0); PLATELET 233 x1000/uL (130-400); RED BLOOD CELL COUNT 3.51 mill/uL (4.2-5.4); RED CELL DISTRIBUTION WIDTH 18.5 % (11.6-14.6)
[2020-06-15] MEDS: SEVELAMER CARBONATE 800 MG TABLET PO SCH ×3 (07:50→17:50)
[2020-06-15] MEDS: APIXABAN 5 MG TABLET PO SCH ×2 (07:59→17:00)
[2020-06-15] MEDS: METOPROLOL TARTRATE 50MG TABLET PO SCH (07:59)
[2020-06-15] MEDS ORDERED: APIX5TAB PO (11:51)
[2020-06-15] MEDS ORDERED: SEVE800T8 PO (11:51)
[2020-06-15] MEDS ORDERED: CINA30 PO (11:51)
[2020-06-15] MEDS ORDERED: LEVO500T2 PO (11:51)
[2020-06-15] MEDS ORDERED: METO-539 PO (11:51)
[2020-06-15] MEDS ORDERED: DIPHENHYDRAMINE 50MG/ML VIAL IV PRN (13:55)
[2020-06-15] MEDS: AZITHROMYCIN 500 MG in DEXT 5% WATER 250 ML IV SCH (17:00)
[2020-06-15] MEDS: CINACALCET HCL 30MG TABLET PO SCH (17:20)
[2020-06-16] MEDS ORDERED: LEVOFLOXACIN 250MG PREMIX 50 ML IV SCH (20:00)
== END 2020-06-15 19:40 | disposition home or self-care (01) | DRG 193 ==
LOC: ER 21:02 → 6WST 06-13 01:58 → ENRESERV 06-13 03:14 → 3WST 06-14 21:16
PROVIDERS: ADMIT Family Medicine; ATTEND Family Medicine
PROC: 02HV33Z Insertion of Infusion Device into Superior Vena Cava, Percutaneous Approach (ICD-10-PCS; 2020-06-14)
PROC: B5181ZA Fluoroscopy of Superior Vena Cava using Low Osmolar Contrast, Guidance (ICD-10-PCS; 2020-06-14)
PROC: B548ZZA Ultrasonography of Superior Vena Cava, Guidance (ICD-10-PCS; 2020-06-14)
PROC: 5A1D70Z Performance of Urinary Filtration, Intermittent, Less than 6 Hours Per Day (ICD-10-PCS; principal; 2020-06-15)
DX: J18.9 Pneumonia, unspecified organism (principal); N18.6 End stage renal disease; Z68.41 Body mass index [BMI] 40.0-44.9, adult; Q61.3 Polycystic kidney, unspecified; I12.0 Hypertensive chronic kidney disease with stage 5 chronic kidney disease or end stage renal disease; K21.9 Gastro-esophageal reflux disease without esophagitis; E66.9 Obesity, unspecified; H35.00 Unspecified background retinopathy; H54.8 Legal blindness, as defined in USA; H35.039 Hypertensive retinopathy, unspecified eye; D63.8 Anemia in other chronic diseases classified elsewhere; Z88.1 Allergy status to other antibiotic agents; Z99.2 Dependence on renal dialysis; Z86.711 Personal history of pulmonary embolism; Z88.0 Allergy status to penicillin; Z79.899 Other long term (current) drug therapy; Z79.01 Long term (current) use of anticoagulants
CPT/HCPCS: 36415; 36573; 71045; 71275; 80048; 80053; 83735; 83880; 84484; 84703; 85025; 93005; 93306; 96374; 99285; C1725; J0456; J1200; J1650; J1956; J2270; J3010; J3490; J7060; Q9967

== ENCOUNTER 2020-09-25 20:27 | Emergency (ER) | payer MEDICARE, MEDICAID ==
[~2020-09-25] VITALS: Ht 172.7 cm; Wt 120.0 kg
[~2020-09-25 20:27] MED LIST changes: +APIX5TAB PO; +CINA30 PO; +LEVO500T2 PO; +METO-539 PO; -METO25TA6 PO; +SEVE800T8 PO
[2020-09-25] MEDS ORDERED: HYDROCODONE/ACETAMINOPHEN 5/325MG TABLET PO ONE (21:30)
[2020-09-25 22:27] VITALS: BP 163/77
[2020-09-25 22:40] LABS: BASOPHILS % 1.3 % (0.0-2.0); EOSINOPHILS % 3.2 % (0.0-5.0); HEMATOCRIT. 32.4 % (36.0-48.0); HEMOGLOBIN. 10.7 g/dL (12.0-16.0); LYMPHOCYTES % 25.8 % (20.0-50.0); MEAN CORPUSCULAR HEMOGLOBIN 29.5 pg (28.0-32.0); MEAN PLATELET VOLUME 7.7 fl (7.4-10.4); MONOCYTES % 7.9 % (2.0-8.0); NEUTROPHILS % 61.8 % (40.0-76.0); PLATELET 311 x1000/uL (130-400); RED BLOOD CELL COUNT 3.65 mill/uL (4.2-5.4); RED CELL DISTRIBUTION WIDTH 15.8 % (11.6-14.6)
[2020-09-25 22:46] LABS: CHLORIDE 101 mEq/L (98-107)
[2020-09-25 22:48] LABS: HCG SCREEN NEGATIVE
== END 2020-09-25 23:20 | disposition left against medical advice (07) ==
LOC: ER 20:27
DX: I12.0 Hypertensive chronic kidney disease with stage 5 chronic kidney disease or end stage renal disease (principal); E11.22 Type 2 diabetes mellitus with diabetic chronic kidney disease; N18.6 End stage renal disease; Z99.2 Dependence on renal dialysis; Z98.890 Other specified postprocedural states; Z88.0 Allergy status to penicillin; Z88.1 Allergy status to other antibiotic agents; Z88.8 Allergy status to other drugs, medicaments and biological substances; Z79.899 Other long term (current) drug therapy
CPT/HCPCS: 36415; 80048; 80076; 84703; 85025; 93005; 99284

== ENCOUNTER 2021-01-08 18:49 | Emergency (ER) | payer MEDICARE ==
[~2021-01-08] VITALS: Ht 172.7 cm; Wt 118.0 kg
[2021-01-08 19:05] VITALS: BP 150/82
[2021-01-08] MEDS ORDERED: MORPHINE SULFATE 2 MG/ML CPJ (NOT FOR IM USE) IV PRN (21:15)
[2021-01-08] MEDS ORDERED: HYDROCODONE/ACETAMINOPHEN 5/325MG TABLET PO PRN (21:15)
[2021-01-08] MEDS ORDERED: THIAMINE HCL 100MG TABLET PO SCH (21:15)
[2021-01-08] MEDS ORDERED: CLONIDINE 0.1MG TABLET PO PRN (21:15)
[2021-01-08] MEDS ORDERED: ENOXAPARIN 40MG/0.4ML SYR SUBCUT SCH (21:15)
[2021-01-08] MEDS ORDERED: ONDANSETRON HCL 4MG/2ML INJ IV PRN (21:15)
[2021-01-08] MEDS ORDERED: LORAZEPAM 2MG/ML CPJ IV PRN (21:15)
[2021-01-08] MEDS ORDERED: METOPROLOL TARTRATE 25MG TABLET PO SCH (21:30)
== END 2021-01-08 21:57 | disposition left against medical advice (07) ==
LOC: ER 18:49 → EDBEDREQ 21:37 → EDBEDREQTM 21:37 → ER 21:57 → CANBEDREQ 22:46
DX: R07.89 Other chest pain (principal); I12.0 Hypertensive chronic kidney disease with stage 5 chronic kidney disease or end stage renal disease; N18.6 End stage renal disease; Z99.2 Dependence on renal dialysis; Z98.890 Other specified postprocedural states; Z79.899 Other long term (current) drug therapy; Z88.0 Allergy status to penicillin
CPT/HCPCS: 93005; 99283

== ENCOUNTER 2021-04-23 12:20 | Inpatient (IN) | payer MEDICARE ==
[~2021-04-23] VITALS: Ht 172.7 cm; Wt 123.2 kg
[~2021-04-23 12:20] MED LIST changes: +PROT40 MT
[2021-04-23 14:50] LABS: CLARITY URINE CLEAR (CLEAR); COLOR URINE RED (YELLOW); KETONES URINE NEGATIVE (NEGATIVE); LEUKOCYTE ESTERASE URINE 1+ (NEGATIVE); NITRITE URINE NEGATIVE (NEGATIVE); OCCULT BLOOD URINE 3+ (NEGATIVE); PROTEIN URINE 2+ (NEGATIVE); SPECIFIC GRAVITY URINE 1.009 (1.005-1.030); UROBILINOGEN URINE 0.2 E.U./dL (0.2-1.0)
[2021-04-23 14:54] LABS: BASOPHILS % 0.3 % (0.0-2.0); EOSINOPHILS % 3.8 % (0.0-5.0); HEMATOCRIT. 29.3 % (36.0-48.0); HEMOGLOBIN. 9.5 g/dL (12.0-16.0); MEAN CORPUSCULAR HEMOGLOBIN 28.5 pg (28.0-32.0); MEAN CORPUSCULAR VOLUME 88.2 fL (81.0-99.0); MEAN PLATELET VOLUME 8.1 fl (7.4-10.4); MONOCYTES % 7.7 % (2.0-8.0); NEUTROPHILS % 64.2 % (40.0-76.0); PLATELET 284 x1000/uL (130-400); RED BLOOD CELL COUNT 3.32 mill/uL (4.2-5.4); RED CELL DISTRIBUTION WIDTH 16.1 % (11.6-14.6)
[2021-04-23 15:01] LABS: CHLORIDE 101 mEq/L (98-107)
[2021-04-23 15:05] LABS: ETHANOL BLOOD < 10 mg/dL; INR 1.1; PARTIAL THROMBOPLASTIN TIME 29.4 sec (23.4-31.0); PROTHROMBIN TIME 11.4 sec (9.6-11.0)
[2021-04-23 15:15] LABS: HCG SCREEN NEGATIVE
[2021-04-23] MEDS ORDERED: MORPHINE SULFATE 4 MG/ML CPJ (NOT FOR IM USE) IV ONE (15:30)
[2021-04-23] MEDS ORDERED: LEVOFLOXACIN 750MG PREMIX 150 ML IV NR (16:00)
[2021-04-23 16:15] LABS: *BARBITURATES SCREEN URINE NEGATIVE (NEGATIVE); CANNABINOID URINE SCREEN NEGATIVE (NEGATIVE); PHENCYCLIDINE URINE SCREEN NEGATIVE (NEGATIVE)
[2021-04-23 16:16] LABS: *AMPHETAMINES SCREEN URINE NEGATIVE (NEGATIVE); *BENZODIAZEPINES SCREEN URINE NEGATIVE (NEGATIVE); *COCAINE SCREEN URINE NEGATIVE (NEGATIVE); METHADONE URINE SCREEN NEGATIVE (NEGATIVE)
[2021-04-23 16:18] LABS: OPIATES URINE SCREEN PRESUMTIVE POSITIVE (NEGATIVE)
[2021-04-23] MEDS ORDERED: DIPHENHYDRAMINE 25MG CAPSULE PO ONE (17:15)
[2021-04-23] MEDS ORDERED: FUROSEMIDE 40MG/4ML VIAL IVP NR (18:00)
[2021-04-23 21:00] VITALS: BP 161/83
[2021-04-23] MEDS ORDERED: NALOXONE HCL 0.4MG/ML VIAL IV PRN (21:15)
[2021-04-23] MEDS: MORPHINE SULFATE 2 MG/ML CPJ (NOT FOR IM USE) IV PRN (21:40)
[2021-04-23] MEDS ORDERED: ENOXAPARIN 40MG/0.4ML SYR SUBCUT SCH (22:00)
[2021-04-23] MEDS ORDERED: HYDROCODONE/ACETAMINOPHEN 5/325MG TABLET PO PRN (22:00)
[2021-04-23] MEDS ORDERED: CLONIDINE 0.1MG TABLET PO PRN (22:00)
[2021-04-23] MEDS ORDERED: ACETAMINOPHEN 650MG/20.3ML UDC GT PRN (22:00)
[2021-04-23] MEDS ORDERED: ONDANSETRON HCL 4MG/2ML INJ IV PRN (22:00)
[2021-04-23] MEDS ORDERED: MORPHINE SULFATE 2 MG/ML CPJ (NOT FOR IM USE) IV PRN (22:00)
[2021-04-23] MEDS: DIPHENHYDRAMINE 50MG/ML VIAL IV PRN (22:14)
[2021-04-23] MEDS: METOPROLOL TARTRATE 25MG TABLET PO SCH (22:24)
[2021-04-23 23:00] VITALS: BP 161/83
[2021-04-24] VITALS (24 sets, daily range): BP systolic 120–179; BP diastolic 56–108
[2021-04-24] MEDS: MORPHINE SULFATE 2 MG/ML CPJ (NOT FOR IM USE) IV PRN (02:59)
[2021-04-24] MEDS: DIPHENHYDRAMINE 50MG/ML VIAL IV PRN ×3 (03:07→21:11)
[2021-04-24 05:24] LABS: BASOPHILS % 0.2 % (0.0-2.0); EOSINOPHILS % 4.4 % (0.0-5.0); HEMATOCRIT. 29.8 % (36.0-48.0); HEMOGLOBIN. 9.5 g/dL (12.0-16.0); LYMPHOCYTES % 27.2 % (20.0-50.0); MEAN CORPUSCULAR HEMOGLOBIN 28.4 pg (28.0-32.0); MEAN CORPUSCULAR VOLUME 89.3 fL (81.0-99.0); MEAN PLATELET VOLUME 8.4 fl (7.4-10.4); MONOCYTES % 7.1 % (2.0-8.0); NEUTROPHILS % 61.1 % (40.0-76.0); PLATELET 243 x1000/uL (130-400); RED BLOOD CELL COUNT 3.33 mill/uL (4.2-5.4); RED CELL DISTRIBUTION WIDTH 16.1 % (11.6-14.6)
[2021-04-24 06:25] LABS: PHOSPHORUS 9.5 mg/dL (2.5-4.9)
[2021-04-24] MEDS ORDERED: ALTEPLASE 2MG/VIAL ITC ONE (07:00)
[2021-04-24] MEDS ORDERED: CLINDAMYCIN 600MG PREMIX 50 ML IV ONE (07:30)
[2021-04-24] MEDS ORDERED: IOHEXOL-300 100 ML BOTTLE ONE (09:57)
[2021-04-24] MEDS ORDERED: HEPARIN 1000 UNITS/ML 10ML ONE (09:58)
[2021-04-24] MEDS ORDERED: LIDOCAINE HCL 1% 20ML VIAL (Pyxis) INJ ONE (09:58)
[2021-04-24] MEDS ORDERED: FENTANYL CITRATE/PF 50MCG/ML 2ML VIAL ONE (10:05)
[2021-04-24] MEDS ORDERED: MIDAZOLAM HCL 2 MG/2 ML VIAL ONE (10:40)
[2021-04-24] MEDS ORDERED: IOHEXOL-300 50 ML BOTTLE IV ONE (10:40)
[2021-04-24] MEDS ORDERED: FENTANYL CITRATE/PF 50MCG/ML 2ML VIAL IV ONE (10:45)
[2021-04-24] MEDS: METOPROLOL TARTRATE 25MG TABLET PO SCH ×2 (11:30→21:34)
[2021-04-24] MEDS ORDERED: HYDROCODONE/ACETAMINOPHEN 10/325MG TABLET PO PRN (11:30)
[2021-04-24] MEDS ORDERED: HYDROMORPHONE HCL/PF 2MG/ML CPJ IV PRN (12:45)
[2021-04-24] MEDS: CEFTRIAXONE 1,000 MG in DEXTROSE 5% WATER 50 ML IV SCH (14:04)
[2021-04-24] MEDS: NIFEDIPINE XL 60MG TAB PO SCH ×2 (14:05→21:33)
[2021-04-24] MEDS: APIXABAN 5 MG TABLET PO SCH (17:22)
[2021-04-24] MEDS: HYDROMORPHONE HCL/PF 2MG/ML CPJ IV PRN (20:59)
[2021-04-25] VITALS (7 sets, daily range): BP systolic 124–148; BP diastolic 62–86
[2021-04-25] MEDS: HYDROMORPHONE HCL/PF 2MG/ML CPJ IV PRN ×4 (03:23→22:29)
[2021-04-25] MEDS: DIPHENHYDRAMINE 50MG/ML VIAL IV PRN ×4 (04:39→20:16)
[2021-04-25] MEDS: NIFEDIPINE XL 60MG TAB PO SCH ×2 (08:47→22:43)
[2021-04-25] MEDS: APIXABAN 5 MG TABLET PO SCH ×2 (08:47→18:32)
[2021-04-25] MEDS: METOPROLOL TARTRATE 25MG TABLET PO SCH ×2 (08:48→22:44)
[2021-04-25 08:55] LABS: BASOPHILS % 0.3 % (0.0-2.0); HEMATOCRIT. 30.6 % (36.0-48.0); HEMOGLOBIN. 9.7 g/dL (12.0-16.0); LYMPHOCYTES % 22.2 % (20.0-50.0); MEAN CORPUSCULAR HEMOGLOBIN 28.3 pg (28.0-32.0); MEAN CORPUSCULAR VOLUME 89.3 fL (81.0-99.0); MEAN PLATELET VOLUME 8.5 fl (7.4-10.4); MONOCYTES % 7.2 % (2.0-8.0); NEUTROPHILS % 66.3 % (40.0-76.0); PLATELET 275 x1000/uL (130-400); RED BLOOD CELL COUNT 3.43 mill/uL (4.2-5.4); RED CELL DISTRIBUTION WIDTH 16.3 % (11.6-14.6)
[2021-04-25] MEDS: CEFTRIAXONE 1,000 MG in DEXTROSE 5% WATER 50 ML IV SCH (13:21)
[2021-04-25] MEDS ORDERED: SEVE800T8 MT (15:52)
[2021-04-25] MEDS: CALCIUM ACETATE 667MG CAPSULE PO SCH (18:32)
[2021-04-25] MEDS ORDERED: *PATIENT'S OWN MEDICATION STORAGE XX SCH (19:45)
[2021-04-26] VITALS: BP 153/74
[2021-04-26] MEDS: DIPHENHYDRAMINE 50MG/ML VIAL IV PRN ×3 (02:46→19:07)
[2021-04-26 04:00] VITALS: BP 132/69
[2021-04-26 08:00] VITALS: BP 126/57
[2021-04-26] MEDS: CALCIUM ACETATE 667MG CAPSULE PO SCH ×3 (08:41→19:35)
[2021-04-26] MEDS: HYDROMORPHONE HCL/PF 2MG/ML CPJ IV PRN ×3 (08:42→22:32)
[2021-04-26] MEDS: APIXABAN 5 MG TABLET PO SCH ×2 (08:42→18:10)
[2021-04-26] MEDS: NIFEDIPINE XL 60MG TAB PO SCH ×2 (08:42→20:56)
[2021-04-26] MEDS: METOPROLOL TARTRATE 25MG TABLET PO SCH ×2 (08:42→20:57)
[2021-04-26 12:23] LABS: HEPATITIS B SURFACE ANTIGEN NEGATIVE
[2021-04-26 12:52] LABS: HEPATITIS A AB IGM NEGATIVE (NEGATIVE)
[2021-04-26] MEDS: CEFTRIAXONE 1,000 MG in DEXTROSE 5% WATER 50 ML IV SCH (13:08)
[2021-04-26 16:00] VITALS: BP 130/68
[2021-04-26 20:00] VITALS: BP 126/68
[2021-04-27] VITALS: BP 121/73
[2021-04-27] MEDS: DIPHENHYDRAMINE 50MG/ML VIAL IV PRN ×3 (00:19→16:09)
[2021-04-27] MEDS: LORAZEPAM 2MG/ML CPJ IV PRN (02:02)
[2021-04-27 04:00] VITALS: BP 132/57
[2021-04-27] MEDS: HYDROMORPHONE HCL/PF 2MG/ML CPJ IV PRN ×3 (06:35→20:06)
[2021-04-27] MEDS: CALCIUM ACETATE 667MG CAPSULE PO SCH ×3 (07:54→18:37)
[2021-04-27 08:42] VITALS: BP 113/58
[2021-04-27] MEDS: METOPROLOL TARTRATE 25MG TABLET PO SCH ×2 (09:23→20:06)
[2021-04-27] MEDS: NIFEDIPINE XL 60MG TAB PO SCH ×2 (09:23→20:05)
[2021-04-27] MEDS: APIXABAN 5 MG TABLET PO SCH ×2 (09:23→18:37)
[2021-04-27] MEDS: CEFTRIAXONE 1,000 MG in DEXTROSE 5% WATER 50 ML IV SCH (12:47)
[2021-04-27 16:14] VITALS: BP 120/57
[2021-04-27 17:19] LABS: BASOPHILS % 1.2 % (0.0-2.0); EOSINOPHILS % 3.6 % (0.0-5.0); HEMATOCRIT. 31.6 % (36.0-48.0); HEMOGLOBIN. 10.4 g/dL (12.0-16.0); LYMPHOCYTES % 25.1 % (20.0-50.0); MEAN CORPUSCULAR VOLUME 88.2 fL (81.0-99.0); MEAN PLATELET VOLUME 8.2 fl (7.4-10.4); MONOCYTES % 8.7 % (2.0-8.0); NEUTROPHILS % 61.4 % (40.0-76.0); PLATELET 262 x1000/uL (130-400); RED BLOOD CELL COUNT 3.58 mill/uL (4.2-5.4)
[2021-04-27 20:50] VITALS: BP 140/78
[2021-04-28] VITALS: BP 136/79
[2021-04-28] MEDS: LORAZEPAM 2MG/ML CPJ IV PRN (00:03)
[2021-04-28 03:32] VITALS: BP 123/69
[2021-04-28] MEDS: HYDROMORPHONE HCL/PF 2MG/ML CPJ IV PRN ×3 (03:36→19:54)
[2021-04-28] MEDS ORDERED: LIDOCAINE HCL 1% 20ML VIAL (Pyxis) INJ ONE (07:40)
[2021-04-28] MEDS ORDERED: IOHEXOL-300 100 ML BOTTLE ONE (07:40)
[2021-04-28] MEDS ORDERED: HEPARIN 1000 UNITS/ML 10ML ONE (07:41)
[2021-04-28] MEDS ORDERED: PROPOFOL 200MG/20ML VIAL IV ONE (07:47)
[2021-04-28] MEDS ORDERED: PROPOFOL 10MG/ML 100ML 100 ML IV ONE (07:48)
[2021-04-28] MEDS: CALCIUM ACETATE 667MG CAPSULE PO SCH ×3 (07:50→17:37)
[2021-04-28] MEDS ORDERED: MIDAZOLAM HCL 2 MG/2 ML VIAL ONE (07:51)
[2021-04-28] MEDS: APIXABAN 5 MG TABLET PO SCH ×2 (09:00→17:37)
[2021-04-28] MEDS ORDERED: LORAZEPAM 2MG/ML CPJ IV NR (09:15)
[2021-04-28] MEDS: NIFEDIPINE XL 60MG TAB PO SCH ×2 (10:25→20:15)
[2021-04-28] MEDS: METOPROLOL TARTRATE 25MG TABLET PO SCH ×2 (10:25→20:14)
[2021-04-28 12:00] VITALS: BP 117/78
[2021-04-28] MEDS: CEFTRIAXONE 1,000 MG in DEXTROSE 5% WATER 50 ML IV SCH (12:17)
[2021-04-28 16:00] VITALS: BP 145/86
[2021-04-28] MEDS: DIPHENHYDRAMINE 50MG/ML VIAL IV PRN ×2 (17:38→21:40)
[2021-04-28 20:00] VITALS: BP 167/89
[2021-04-28 20:38] VITALS: BP 142/84
[2021-04-29] VITALS: BP 112/62
[2021-04-29] MEDS: DIPHENHYDRAMINE 50MG/ML VIAL IV PRN (02:51)
[2021-04-29 04:00] VITALS: BP 128/75
[2021-04-29] MEDS: HYDROMORPHONE HCL/PF 2MG/ML CPJ IV PRN ×2 (06:09→12:35)
[2021-04-29 08:12] VITALS: BP 131/76
[2021-04-29] MEDS: APIXABAN 5 MG TABLET PO SCH (08:39)
[2021-04-29] MEDS: METOPROLOL TARTRATE 25MG TABLET PO SCH (08:39)
[2021-04-29] MEDS: NIFEDIPINE XL 60MG TAB PO SCH (08:39)
[2021-04-29] MEDS: CALCIUM ACETATE 667MG CAPSULE PO SCH ×2 (08:39→12:35)
[2021-04-29 11:06] VITALS: BP 131/76
[2021-04-29 12:30] VITALS: BP 141/91
[2021-04-29 12:35] VITALS: BP 141/91
== END 2021-04-29 14:18 | disposition home or self-care (01) | DRG 853 ==
LOC: ER 12:20 → 6WST 17:24 → ENRESERV 19:28
PROVIDERS: ADMIT Internal Medicine Nephrology; ATTEND Internal Medicine Nephrology
PROC: 05763ZZ Dilation of Left Subclavian Vein, Percutaneous Approach (ICD-10-PCS; principal; 2021-04-24)
PROC: 057N3ZZ Dilation of Left Internal Jugular Vein, Percutaneous Approach (ICD-10-PCS; 2021-04-24)
PROC: B31HZZZ Fluoroscopy of Right Upper Extremity Arteries (ICD-10-PCS; 2021-04-24)
PROC: 5A1D70Z Performance of Urinary Filtration, Intermittent, Less than 6 Hours Per Day (ICD-10-PCS; 2021-04-26)
PROC: 5A1D70Z Performance of Urinary Filtration, Intermittent, Less than 6 Hours Per Day (ICD-10-PCS; 2021-04-27)
PROC: 5A1D70Z Performance of Urinary Filtration, Intermittent, Less than 6 Hours Per Day (ICD-10-PCS; 2021-04-28)
PROC: B51W1ZZ Fluoroscopy of Dialysis Shunt/Fistula using Low Osmolar Contrast (ICD-10-PCS; 2021-04-28)
DX: A41.9 Sepsis, unspecified organism (principal); N18.6 End stage renal disease; T82.858A Stenosis of other vascular prosthetic devices, implants and grafts, initial encounter; E44.1 Mild protein-calorie malnutrition; N39.0 Urinary tract infection, site not specified; I12.0 Hypertensive chronic kidney disease with stage 5 chronic kidney disease or end stage renal disease; Q61.2 Polycystic kidney, adult type; Z68.41 Body mass index [BMI] 40.0-44.9, adult; T82.898A Other specified complication of vascular prosthetic devices, implants and grafts, initial encounter; E66.9 Obesity, unspecified; E87.6 Hypokalemia; H54.8 Legal blindness, as defined in USA; Z99.2 Dependence on renal dialysis; Z86.711 Personal history of pulmonary embolism; Y92.89 Other specified places as the place of occurrence of the external cause; Z87.440 Personal history of urinary (tract) infections; Z88.1 Allergy status to other antibiotic agents; Z20.822 Contact with and (suspected) exposure to COVID-19; Y83.9 Surgical procedure, unspecified as the cause of abnormal reaction of the patient, or of later complication, without mention of misadventure at the time of the procedure
CPT/HCPCS: 36415; 36901; 36902; 71045; 76770; 76937; 80048; 80053; 80305; 80320; 81003; 83735; 83880; 84100; 84484; 84703; 85025; 86705; 86709; 86803; 87340; 87426; 93005; 99152; 99153; 99285; C1725; C1766; C1769; C1887; C1893; J0696; J1170; J1200; J1644; J1650; J1940; J1956; J2060; J2250; J2270; J2704; J2997; J3010; J3490; J7040; J7060; Q0163; Q9967; G0480; G0500

== ENCOUNTER 2021-06-09 03:38 | Inpatient (IN) | payer MEDICARE ==
[~2021-06-09] VITALS: Ht 172.7 cm; Wt 121.1 kg
[~2021-06-09 03:38] MED LIST changes: -CLON1PAT11 TD; -HYDR-4135 PO; -LEVO500T2 PO; -NIFE90TA60 PO; -PROT40 MT; +SEVE800T8 MT; -SEVE800T8 PO
[2021-06-09] MEDS ORDERED: VISCOUS LIDOCAINE 2% 15 ML UDC PO STA (05:17)
[2021-06-09] MEDS ORDERED: MAGNESIUM/ALUMINUM HYDROXIDE/SIMETHICONE 30ML UDC PO STA (05:17)
[2021-06-09] MEDS ORDERED: ONDANSETRON 4MG ODT PO ONE (05:30)
[2021-06-09] MEDS ORDERED: HYDROCODONE/ACETAMINOPHEN 5/325MG TABLET PO ONE ×2 (05:30→09:30)
[2021-06-09 05:33] LABS: BASOPHILS % 0.3 % (0.0-2.0); EOSINOPHILS % 4.2 % (0.0-5.0); HEMATOCRIT. 28.4 % (36.0-48.0); HEMOGLOBIN. 9.1 g/dL (12.0-16.0); LYMPHOCYTES % 18.3 % (20.0-50.0); MEAN CORPUSCULAR HEMOGLOBIN 28.3 pg (28.0-32.0); MEAN CORPUSCULAR VOLUME 88.5 fL (81.0-99.0); MEAN PLATELET VOLUME 7.8 fl (7.4-10.4); MONOCYTES % 8.4 % (2.0-8.0); NEUTROPHILS % 68.8 % (40.0-76.0); PLATELET 273 x1000/uL (130-400); RED BLOOD CELL COUNT 3.21 mill/uL (4.2-5.4); RED CELL DISTRIBUTION WIDTH 16.4 % (11.6-14.6)
[2021-06-09 05:40] LABS: CHLORIDE 104 mEq/L (98-107)
[2021-06-09 05:43] LABS: ETHANOL BLOOD < 10 mg/dL
[2021-06-09 05:53] LABS: HCG SCREEN NEGATIVE
[2021-06-09 05:55] LABS: INR 1.1; PROTHROMBIN TIME 11.9 sec (9.6-11.0)
[2021-06-09] MEDS ORDERED: ONDANSETRON HCL 4MG/2ML INJ IV PRN (10:30)
[2021-06-09] MEDS ORDERED: HYDROCODONE/ACETAMINOPHEN 10/325MG TABLET PO PRN (10:30)
[2021-06-09] MEDS: MORPHINE SULFATE 2 MG/ML CPJ (NOT FOR IM USE) IV PRN ×2 (13:52→21:15)
[2021-06-09 16:05] VITALS: BP 144/86
[2021-06-09 16:19] VITALS: BP 144/86
[2021-06-09 16:25] LABS: CLARITY URINE CLEAR (CLEAR); COLOR URINE YELLOW (YELLOW); KETONES URINE NEGATIVE (NEGATIVE); LEUKOCYTE ESTERASE URINE TRACE (NEGATIVE); NITRITE URINE NEGATIVE (NEGATIVE); OCCULT BLOOD URINE 2+ (NEGATIVE); PH URINE 7.5 (4.5-8.0); PROTEIN URINE 1+ (NEGATIVE); SPECIFIC GRAVITY URINE 1.009 (1.005-1.030); UROBILINOGEN URINE 0.2 E.U./dL (0.2-1.0)
[2021-06-09] MEDS ORDERED: LORA-249 PO (16:30)
[2021-06-09 16:40] LABS: *BENZODIAZEPINES SCREEN URINE NEGATIVE (NEGATIVE); *COCAINE SCREEN URINE NEGATIVE (NEGATIVE); METHADONE URINE SCREEN NEGATIVE (NEGATIVE)
[2021-06-09 16:42] LABS: *AMPHETAMINES SCREEN URINE NEGATIVE (NEGATIVE); CANNABINOID URINE SCREEN NEGATIVE (NEGATIVE); OPIATES URINE SCREEN PRESUMTIVE POSITIVE (NEGATIVE); PHENCYCLIDINE URINE SCREEN NEGATIVE (NEGATIVE)
[2021-06-09 16:43] LABS: *BARBITURATES SCREEN URINE NEGATIVE (NEGATIVE)
[2021-06-09] MEDS ORDERED: DIPHENHYDRAMINE 25MG CAPSULE PO PRN (16:45)
[2021-06-09] MEDS ORDERED: NALOXONE HCL 0.4MG/ML VIAL IV PRN (17:00)
[2021-06-09] MEDS: APIXABAN 5 MG TABLET PO SCH (17:13)
[2021-06-09 20:00] VITALS: BP 129/49
[2021-06-09] MEDS: DIPHENHYDRAMINE 50MG/ML VIAL IV PRN (23:02)
[2021-06-09 23:30] LABS: HEPATITIS B SURFACE ANTIGEN NEGATIVE
[2021-06-10] VITALS: BP 118/48
[2021-06-10] MEDS: MORPHINE SULFATE 2 MG/ML CPJ (NOT FOR IM USE) IV PRN ×4 (03:45→21:25)
[2021-06-10 04:00] VITALS: BP 130/58
[2021-06-10 06:31] LABS: BASOPHILS % 0.4 % (0.0-2.0); EOSINOPHILS % 4.3 % (0.0-5.0); HEMATOCRIT. 27.1 % (36.0-48.0); HEMOGLOBIN. 8.8 g/dL (12.0-16.0); LYMPHOCYTES % 20.7 % (20.0-50.0); MEAN CORPUSCULAR HEMOGLOBIN 28.6 pg (28.0-32.0); MEAN CORPUSCULAR VOLUME 88.4 fL (81.0-99.0); MEAN PLATELET VOLUME 8.1 fl (7.4-10.4); MONOCYTES % 9.3 % (2.0-8.0); NEUTROPHILS % 65.3 % (40.0-76.0); PLATELET 249 x1000/uL (130-400); RED BLOOD CELL COUNT 3.07 mill/uL (4.2-5.4); RED CELL DISTRIBUTION WIDTH 16.5 % (11.6-14.6)
[2021-06-10 08:00] VITALS: BP 129/60
[2021-06-10] MEDS: APIXABAN 5 MG TABLET PO SCH ×2 (08:40→17:53)
[2021-06-10] MEDS: DIPHENHYDRAMINE 50MG/ML VIAL IV PRN ×2 (08:40→15:42)
[2021-06-10] MEDS: AMLODIPINE 10MG TABLET PO SCH (08:40)
[2021-06-10 12:00] VITALS: BP 145/69
[2021-06-10 16:00] VITALS: BP 132/64
[2021-06-10 20:00] VITALS: BP 145/59
[2021-06-11] VITALS: BP 114/51
[2021-06-11 04:00] VITALS: BP 129/62
[2021-06-11] MEDS: MORPHINE SULFATE 2 MG/ML CPJ (NOT FOR IM USE) IV PRN ×3 (04:32→21:00)
[2021-06-11 08:00] VITALS: BP 124/75
[2021-06-11] MEDS: DIPHENHYDRAMINE 50MG/ML VIAL IV PRN ×3 (08:05→17:39)
[2021-06-11] MEDS: AMLODIPINE 10MG TABLET PO SCH (08:05)
[2021-06-11] MEDS: APIXABAN 5 MG TABLET PO SCH ×2 (08:05→17:22)
[2021-06-11 12:00] VITALS: BP 133/69
[2021-06-11 20:00] VITALS: BP 129/61
[2021-06-12] VITALS: BP 121/57
[2021-06-12] MEDS: DIPHENHYDRAMINE 50MG/ML VIAL IV PRN ×3 (03:40→18:30)
[2021-06-12 04:00] VITALS: BP 120/68
[2021-06-12] MEDS: MORPHINE SULFATE 2 MG/ML CPJ (NOT FOR IM USE) IV PRN ×4 (05:18→20:11)
[2021-06-12 08:00] VITALS: BP 138/65
[2021-06-12] MEDS: APIXABAN 5 MG TABLET PO SCH ×2 (10:11→17:25)
[2021-06-12] MEDS: AMLODIPINE 5MG TABLET PO SCH (10:11)
[2021-06-12 16:00] VITALS: BP 127/66
[2021-06-12] MEDS ORDERED: HYDR-4009 PO (16:15)
[2021-06-12 16:29] LABS: BASOPHILS % 0.4 % (0.0-2.0); EOSINOPHILS % 4.1 % (0.0-5.0); HEMATOCRIT. 27.3 % (36.0-48.0); HEMOGLOBIN. 8.9 g/dL (12.0-16.0); LYMPHOCYTES % 23.7 % (20.0-50.0); MEAN CORPUSCULAR HEMOGLOBIN 28.6 pg (28.0-32.0); MEAN CORPUSCULAR VOLUME 88.1 fL (81.0-99.0); MEAN PLATELET VOLUME 8.2 fl (7.4-10.4); MONOCYTES % 7.6 % (2.0-8.0); NEUTROPHILS % 64.2 % (40.0-76.0); PLATELET 310 x1000/uL (130-400); RED CELL DISTRIBUTION WIDTH 16.5 % (11.6-14.6)
[2021-06-12 20:00] VITALS: BP 124/67
[2021-06-13] VITALS: BP 123/58
[2021-06-13] MEDS: MORPHINE SULFATE 2 MG/ML CPJ (NOT FOR IM USE) IV PRN ×2 (00:43→04:56)
[2021-06-13] MEDS: DIPHENHYDRAMINE 50MG/ML VIAL IV PRN ×2 (02:40→10:16)
[2021-06-13 04:00] VITALS: BP 130/66
[2021-06-13 08:00] VITALS: BP 134/66
[2021-06-13] MEDS: AMLODIPINE 5MG TABLET PO SCH (09:30)
[2021-06-13] MEDS: APIXABAN 5 MG TABLET PO SCH (09:30)
[2021-06-13 10:39] VITALS: BP 134/66
[2021-06-13 12:07] VITALS: BP 128/63
== END 2021-06-13 13:45 | disposition home or self-care (01) | DRG 438 ==
LOC: ER 03:38 → 6WST 09:05 → ENRESERV 16:13 → CANBEDREQ 16:37
PROVIDERS: ADMIT Internal Medicine Nephrology; ATTEND Internal Medicine Nephrology
PROC: 5A1D70Z Performance of Urinary Filtration, Intermittent, Less than 6 Hours Per Day (ICD-10-PCS; principal; 2021-06-12)
DX: K85.90 Acute pancreatitis without necrosis or infection, unspecified (principal); N18.6 End stage renal disease; I12.0 Hypertensive chronic kidney disease with stage 5 chronic kidney disease or end stage renal disease; Q61.3 Polycystic kidney, unspecified; Z68.41 Body mass index [BMI] 40.0-44.9, adult; E66.9 Obesity, unspecified; R59.0 Localized enlarged lymph nodes; M54.50 Low back pain, unspecified; Z79.01 Long term (current) use of anticoagulants; Z88.6 Allergy status to analgesic agent; Z88.0 Allergy status to penicillin; Z88.8 Allergy status to other drugs, medicaments and biological substances; Z99.2 Dependence on renal dialysis; Z79.899 Other long term (current) drug therapy; Z87.891 Personal history of nicotine dependence; Z86.711 Personal history of pulmonary embolism
CPT/HCPCS: 36415; 74176; 76700; 80048; 80053; 80305; 80320; 81003; 84484; 84703; 85025; 86705; 86709; 86803; 87340; 93005; 99285; J1200; J2270; J2405; J7040; Q0162; Q0163; G0480

== ENCOUNTER 2021-06-29 03:51 | Emergency (ER) | payer MEDICARE ==
[~2021-06-29] VITALS: Ht 172.7 cm; Wt 116.0 kg
[~2021-06-29 03:51] MED LIST changes: +HYDR-4009 PO; +LORA-249 PO
[2021-06-29] MEDS ORDERED: HYDROCODONE/ACETAMINOPHEN 5/325MG TABLET PO ONE (04:15)
[2021-06-29 05:00] LABS: BASOPHILS % 0.6 % (0.0-2.0); EOSINOPHILS % 6.1 % (0.0-5.0); HEMATOCRIT. 28.5 % (36.0-48.0); LYMPHOCYTES % 20.2 % (20.0-50.0); MEAN CORPUSCULAR HEMOGLOBIN 28.3 pg (28.0-32.0); MEAN CORPUSCULAR VOLUME 89.3 fL (81.0-99.0); MONOCYTES % 8.6 % (2.0-8.0); NEUTROPHILS % 64.5 % (40.0-76.0); PLATELET 280 x1000/uL (130-400)
[2021-06-29 05:07] LABS: CHLORIDE 106 mEq/L (98-107)
[2021-06-29] MEDS ORDERED: MORPHINE SULFATE 10 MG/ML CPJ IM ONE (05:45)
[2021-06-29 07:06] VITALS: BP 143/90
== END 2021-06-29 07:07 | disposition home or self-care (01) ==
LOC: ER 03:59
DX: R10.13 Epigastric pain (principal); I12.0 Hypertensive chronic kidney disease with stage 5 chronic kidney disease or end stage renal disease; N18.6 End stage renal disease; Q61.3 Polycystic kidney, unspecified; Z87.19 Personal history of other diseases of the digestive system; Z99.2 Dependence on renal dialysis; Z88.8 Allergy status to other drugs, medicaments and biological substances; Z88.0 Allergy status to penicillin
CPT/HCPCS: 36415; 71045; 80053; 83690; 85025; 96372; 99284; J2270

== ENCOUNTER 2022-05-24 14:52 | Emergency (ER) | payer MEDICARE, MEDICAID ==
[~2022-05-24] VITALS: Ht 165.1 cm; Wt 105.0 kg
[~2022-05-24 14:52] MED LIST changes: +AMLO10TA80 PO; +HYDR-4134 PO
[2022-05-24 14:55] VITALS: BP 156/77
[2022-05-25] MEDS ORDERED: ALPR0.5T PO (10:27)
== END 2022-05-24 16:50 | disposition left against medical advice (07) ==
LOC: ER 14:52
DX: Z53.21 Procedure and treatment not carried out due to patient leaving prior to being seen by health care provider (principal); I12.0 Hypertensive chronic kidney disease with stage 5 chronic kidney disease or end stage renal disease; N18.6 End stage renal disease; Z88.0 Allergy status to penicillin; Z88.3 Allergy status to other anti-infective agents; Z88.6 Allergy status to analgesic agent; Z88.8 Allergy status to other drugs, medicaments and biological substances; Z99.2 Dependence on renal dialysis; Z87.440 Personal history of urinary (tract) infections

== ENCOUNTER 2022-05-24 23:51 | Inpatient (IN) | payer MEDICARE, MEDICAID ==
[~2022-05-24] VITALS: Ht 175.3 cm; Wt 119.7 kg
[2022-05-25] MEDS ORDERED: NITROGLYCERIN 0.4MG TABLET SL SL PRN (01:00)
[2022-05-25] MEDS ORDERED: ACETAMINOPHEN 500MG TABLET PO ONE (01:30)
[2022-05-25 02:05] LABS: BASOPHILS % 0.8 % (0.0-2.0); EOSINOPHILS % 2.6 % (0.0-5.0); HEMOGLOBIN. 9.6 g/dL (12.0-16.0); LYMPHOCYTES % 28.4 % (20.0-50.0); MEAN CORPUSCULAR VOLUME 87.6 fL (81.0-99.0); MEAN PLATELET VOLUME 7.3 fl (7.4-10.4); MONOCYTES % 9.8 % (2.0-8.0); NEUTROPHILS % 58.4 % (40.0-76.0); PLATELET 269 x1000/uL (130-400); RED BLOOD CELL COUNT 3.43 mill/uL (4.2-5.4); RED CELL DISTRIBUTION WIDTH 15.8 % (11.6-14.6)
[2022-05-25 02:11] LABS: CHLORIDE 101 mEq/L (98-107)
[2022-05-25] MEDS ORDERED: NAPROXEN 250MG TABLET PO PRN (04:15)
[2022-05-25] MEDS ORDERED: ZOLPIDEM TARTRATE 5MG TABLET PO PRN (04:15)
[2022-05-25] MEDS ORDERED: ACETAMINOPHEN 325MG TABLET PO PRN ×2 (04:15)
[2022-05-25] MEDS ORDERED: CLONIDINE 0.1MG TABLET PO PRN (04:15)
[2022-05-25] MEDS ORDERED: MAGNESIUM/ALUMINUM HYDROXIDE/SIMETHICONE 30ML UDC PO PRN (04:15)
[2022-05-25] MEDS ORDERED: ONDANSETRON HCL 4MG/2ML INJ IV PRN (04:15)
[2022-05-25] MEDS ORDERED: NALOXONE HCL 0.4MG/ML VIAL IV PRN (04:45)
[2022-05-25] MEDS: DIPHENHYDRAMINE 50MG/ML VIAL IV PRN ×3 (05:12→20:02)
[2022-05-25] MEDS: HYDROCODONE/ACETAMINOPHEN 5/325MG TABLET PO PRN ×3 (05:13→22:37)
[2022-05-25] MEDS: SODIUM CHLORIDE 0.9% INJ 3ML FLUSH IVF SCH ×3 (06:01→21:52)
[2022-05-25] MEDS: AMLODIPINE 10MG TABLET PO SCH (09:00)
[2022-05-25] MEDS: LISINOPRIL 10MG TABLET PO SCH (09:00)
[2022-05-25] MEDS: METOPROLOL TARTRATE 25MG TABLET PO SCH ×2 (09:00→21:50)
[2022-05-25] MEDS: HYDRALAZINE HCL 25MG TABLET PO SCH ×2 (09:00→21:50)
[2022-05-25 10:10] VITALS: BP 132/73
[2022-05-25] MEDS ORDERED: ALPR0.5T PO (10:27)
[2022-05-25] MEDS: CINACALCET HCL 30MG TABLET PO SCH (10:53)
[2022-05-25 11:40] VITALS: BP 144/85
[2022-05-25 16:18] VITALS: BP 140/80
[2022-05-25] MEDS ORDERED: LIDOCAINE 5% PATCH TOP PRN ×2 (18:00→18:15)
[2022-05-25] MEDS ORDERED: ASPIRIN 81MG TABLET PO PRN (18:45)
[2022-05-25] MEDS: ALPRAZOLAM 0.5 MG TABLET PO PRN (18:53)
[2022-05-25 20:00] VITALS: BP 144/69
[2022-05-25] MEDS: ENOXAPARIN 120MG/0.8ML SYR SUBCUT SCH (21:51)
[2022-05-26] VITALS (7 sets, daily range): BP systolic 128–156; BP diastolic 66–82
[2022-05-26] MEDS: SODIUM CHLORIDE 0.9% INJ 3ML FLUSH IVF SCH ×3 (06:02→21:05)
[2022-05-26] MEDS: DIPHENHYDRAMINE 50MG/ML VIAL IV PRN ×3 (08:21→23:09)
[2022-05-26] MEDS: HYDROCODONE/ACETAMINOPHEN 5/325MG TABLET PO PRN (08:21)
[2022-05-26] MEDS: CINACALCET HCL 30MG TABLET PO SCH (08:22)
[2022-05-26] MEDS: AMLODIPINE 10MG TABLET PO SCH (09:00)
[2022-05-26] MEDS: LISINOPRIL 10MG TABLET PO SCH (09:00)
[2022-05-26] MEDS: METOPROLOL TARTRATE 25MG TABLET PO SCH ×2 (09:00→20:33)
[2022-05-26] MEDS: HYDRALAZINE HCL 25MG TABLET PO SCH ×2 (09:00→20:32)
[2022-05-26] MEDS: ALPRAZOLAM 0.5 MG TABLET PO PRN (12:12)
[2022-05-26] MEDS: MORPHINE SULFATE 4 MG/ML CPJ (NOT FOR IM USE) IV PRN ×2 (14:40→21:05)
[2022-05-26 15:34] LABS: BASOPHILS % 0.8 % (0.0-2.0); EOSINOPHILS % 3.8 % (0.0-5.0); HEMOGLOBIN. 9.3 g/dL (12.0-16.0); LYMPHOCYTES % 33.6 % (20.0-50.0); MEAN CORPUSCULAR HEMOGLOBIN 28.2 pg (28.0-32.0); MEAN CORPUSCULAR VOLUME 85.3 fL (81.0-99.0); MEAN PLATELET VOLUME 7.3 fl (7.4-10.4); MONOCYTES % 8.9 % (2.0-8.0); NEUTROPHILS % 52.9 % (40.0-76.0); PLATELET 252 x1000/uL (130-400); RED BLOOD CELL COUNT 3.28 mill/uL (4.2-5.4); RED CELL DISTRIBUTION WIDTH 15.5 % (11.6-14.6)
[2022-05-26 16:04] LABS: HEPATITIS B SURFACE ANTIGEN NEGATIVE
[2022-05-26] MEDS: ENOXAPARIN 120MG/0.8ML SYR SUBCUT SCH (20:33)
[2022-05-27] MEDS: MORPHINE SULFATE 4 MG/ML CPJ (NOT FOR IM USE) IV PRN ×2 (03:18→09:43)
[2022-05-27 03:30] VITALS: BP 150/77
[2022-05-27] MEDS: DIPHENHYDRAMINE 50MG/ML VIAL IV PRN ×2 (05:02→12:38)
[2022-05-27] MEDS: SODIUM CHLORIDE 0.9% INJ 3ML FLUSH IVF SCH ×2 (05:02→13:01)
[2022-05-27] MEDS: HYDRALAZINE HCL 50MG TABLET PO SCH ×2 (06:16→13:02)
[2022-05-27 07:38] LABS: BASOPHILS % 0.9 % (0.0-2.0); LYMPHOCYTES % 32.1 % (20.0-50.0); MEAN CORPUSCULAR HEMOGLOBIN 27.8 pg (28.0-32.0); MEAN CORPUSCULAR VOLUME 85.7 fL (81.0-99.0); MEAN PLATELET VOLUME 7.4 fl (7.4-10.4); MONOCYTES % 8.2 % (2.0-8.0); NEUTROPHILS % 54.8 % (40.0-76.0); PLATELET 273 x1000/uL (130-400); RED BLOOD CELL COUNT 3.61 mill/uL (4.2-5.4); RED CELL DISTRIBUTION WIDTH 15.7 % (11.6-14.6)
[2022-05-27 07:47] LABS: INR 1.1; PROTHROMBIN TIME 11.3 sec (9.6-11.0)
[2022-05-27 08:00] VITALS: BP 144/71
[2022-05-27 08:03] LABS: PHOSPHORUS 8.6 mg/dL (2.5-4.9)
[2022-05-27] MEDS: CINACALCET HCL 30MG TABLET PO SCH (08:20)
[2022-05-27] MEDS: LISINOPRIL 10MG TABLET PO SCH (08:21)
[2022-05-27] MEDS: AMLODIPINE 10MG TABLET PO SCH (08:22)
[2022-05-27] MEDS: METOPROLOL TARTRATE 25MG TABLET PO SCH (08:22)
[2022-05-27 12:08] VITALS: BP 137/68
[2022-05-27 14:23] VITALS: BP 137/68
[2022-05-27] MEDS: ALPRAZOLAM 0.5 MG TABLET PO PRN (14:47)
== END 2022-05-27 16:56 | disposition home or self-care (01) | DRG 311 ==
LOC: ER 23:51 → MICUSO 05-25 02:42 → 6WST 05-25 09:02
PROVIDERS: ADMIT Internal Medicine Nephrology; ATTEND Internal Medicine Nephrology
DX: I20.0 Unstable angina (principal); N18.6 End stage renal disease; Q61.3 Polycystic kidney, unspecified; I27.82 Chronic pulmonary embolism; I12.0 Hypertensive chronic kidney disease with stage 5 chronic kidney disease or end stage renal disease; D63.8 Anemia in other chronic diseases classified elsewhere; F41.1 Generalized anxiety disorder; E66.9 Obesity, unspecified; Z68.39 Body mass index [BMI] 39.0-39.9, adult; Z99.2 Dependence on renal dialysis; Z88.0 Allergy status to penicillin; Z88.8 Allergy status to other drugs, medicaments and biological substances; Z76.5 Malingerer [conscious simulation]; Z79.899 Other long term (current) drug therapy
CPT/HCPCS: 36415; 71045; 80048; 80053; 83735; 83880; 84100; 84484; 85025; 86705; 86709; 86803; 87340; 93005; 93306; 99285; J1200; J1650; J2270; J2405

== ENCOUNTER 2022-09-12 03:44 | Inpatient (IN) | payer MEDICARE ==
[2022-09-12] VITALS (13 sets, daily range): BP systolic 121–149; BP diastolic 65–92
[~2022-09-12] VITALS: Ht 175.3 cm; Wt 121.6 kg
[~2022-09-12 03:44] MED LIST changes: +ALPR0.5T PO
[2022-09-12 06:16] LABS: CHLORIDE 97 mEq/L (98-107)
[2022-09-12 06:17] LABS: BASOPHILS % 1.1 % (0.0-2.0); EOSINOPHILS % 3.9 % (0.0-5.0); HEMATOCRIT. 28.1 % (36.0-48.0); HEMOGLOBIN. 9.1 g/dL (12.0-16.0); LYMPHOCYTES % 24.8 % (20.0-50.0); MEAN CORPUSCULAR HEMOGLOBIN 28.2 pg (28.0-32.0); MEAN CORPUSCULAR VOLUME 87.4 fL (81.0-99.0); MEAN PLATELET VOLUME 7.5 fl (7.4-10.4); MONOCYTES % 8.9 % (2.0-8.0); NEUTROPHILS % 61.3 % (40.0-76.0); PLATELET 273 x1000/uL (130-400); RED BLOOD CELL COUNT 3.21 mill/uL (4.2-5.4); RED CELL DISTRIBUTION WIDTH 17.2 % (11.6-14.6)
[2022-09-12 07:09] LABS: HCG SCREEN NEGATIVE
[2022-09-12] MEDS ORDERED: ACETAMINOPHEN WITH CODEINE 300/30MG TABLET PO ONE (08:30)
[2022-09-12] MEDS ORDERED: GUAIFENESIN 200MG/10ML SUGAR FREE UDC PO PRN (11:15)
[2022-09-12] MEDS ORDERED: DOCUSATE SODIUM 100MG CAPSULE PO PRN (11:15)
[2022-09-12] MEDS ORDERED: MAGNESIUM/ALUMINUM HYDROXIDE/SIMETHICONE 30ML UDC PO PRN (11:15)
[2022-09-12] MEDS ORDERED: IPRATROPIUM/ALBUTEROL 0.5-3(2.5)MG/3ML NEB HHN PRN (11:15)
[2022-09-12] MEDS ORDERED: ACETAMINOPHEN 325MG TABLET PO PRN ×2 (11:15)
[2022-09-12] MEDS ORDERED: ONDANSETRON HCL 4MG/2ML INJ IV PRN (11:15)
[2022-09-12] MEDS ORDERED: NA PHOS,M-B/NA PHOS,DI-BA ENEMA 118ML PR PRN (11:15)
[2022-09-12] MEDS ORDERED: NALOXONE HCL 0.4MG/ML VIAL IV PRN (12:00)
[2022-09-12] MEDS: METOPROLOL TARTRATE 50MG TABLET PO SCH ×2 (12:44→21:17)
[2022-09-12] MEDS: APIXABAN 5 MG TABLET PO SCH ×2 (12:44→17:00)
[2022-09-12] MEDS: CLONIDINE 0.1MG TABLET PO PRN ×2 (12:45→21:23)
[2022-09-12] MEDS: AMLODIPINE 10MG TABLET PO SCH (12:45)
[2022-09-12] MEDS: HYDROCODONE/ACETAMINOPHEN 5/325MG TABLET PO PRN ×2 (12:46→19:45)
[2022-09-12] MEDS ORDERED: HYDRALAZINE HCL 50MG TABLET PO SCH (14:00)
[2022-09-12] MEDS: DIPHENHYDRAMINE 50MG/ML VIAL IV PRN ×2 (16:16→22:59)
[2022-09-13] VITALS (12 sets, daily range): BP systolic 110–170; BP diastolic 52–84
[2022-09-13] MEDS: HYDROCODONE/ACETAMINOPHEN 5/325MG TABLET PO PRN ×2 (03:39→20:19)
[2022-09-13] MEDS: DIPHENHYDRAMINE 50MG/ML VIAL IV PRN ×4 (04:17→22:10)
[2022-09-13] MEDS ORDERED: ALPRAZOLAM 0.5 MG TABLET PO PRN (06:15)
[2022-09-13] MEDS: PANTOPRAZOLE 40MG DR TABLET PO SCH (06:46)
[2022-09-13 07:12] LABS: BASOPHILS % 0.6 % (0.0-2.0); EOSINOPHILS % 4.6 % (0.0-5.0); HEMATOCRIT. 24.8 % (36.0-48.0); HEMOGLOBIN. 8.1 g/dL (12.0-16.0); LYMPHOCYTES % 27.4 % (20.0-50.0); MEAN CORPUSCULAR HEMOGLOBIN 28.5 pg (28.0-32.0); MEAN CORPUSCULAR VOLUME 87.5 fL (81.0-99.0); MEAN PLATELET VOLUME 7.7 fl (7.4-10.4); MONOCYTES % 12.1 % (2.0-8.0); NEUTROPHILS % 55.3 % (40.0-76.0); PLATELET 239 x1000/uL (130-400); RED BLOOD CELL COUNT 2.84 mill/uL (4.2-5.4); RED CELL DISTRIBUTION WIDTH 17.1 % (11.6-14.6)
[2022-09-13 07:59] LABS: VITAMIN B12 SERUM 437 pg/mL (211-911)
[2022-09-13] MEDS: METOPROLOL TARTRATE 50MG TABLET PO SCH ×2 (08:23→20:19)
[2022-09-13] MEDS: APIXABAN 5 MG TABLET PO SCH ×2 (08:23→16:05)
[2022-09-13] MEDS: AMLODIPINE 10MG TABLET PO SCH (08:24)
[2022-09-13 08:43] LABS: T4 FREE 0.82 ng/dL (0.76-1.46)
[2022-09-13 08:47] LABS: PHOSPHORUS 8.3 mg/dL (2.5-4.9)
[2022-09-13] MEDS: FOLIC ACID 1MG TABLET PO SCH (10:55)
[2022-09-13] MEDS: SEVELAMER CARBONATE 800 MG TABLET PO SCH ×3 (10:55→16:05)
[2022-09-13] MEDS ORDERED: MORPHINE SULFATE 2 MG/ML CPJ (NOT FOR IM USE) IV NR (13:45)
[2022-09-13 15:08] LABS: FERRITIN 456 ng/mL (10-291)
[2022-09-13] MEDS ORDERED: INFLUENZA VACCINE 05/PF 0.5 ML SYRINGE IM ONE (21:00)
[2022-09-14] VITALS: BP 138/64
[2022-09-14] MEDS: HYDROCODONE/ACETAMINOPHEN 5/325MG TABLET PO PRN ×2 (01:29→13:06)
[2022-09-14 04:00] VITALS: BP 137/62
[2022-09-14] MEDS: DIPHENHYDRAMINE 50MG/ML VIAL IV PRN ×3 (04:34→17:15)
[2022-09-14] MEDS: PANTOPRAZOLE 40MG DR TABLET PO SCH (06:21)
[2022-09-14] MEDS ORDERED: LEVOTHYROXINE SODIUM 50MCG TABLET PO SCH (07:10)
[2022-09-14 08:00] VITALS: BP 124/56
[2022-09-14] MEDS: FOLIC ACID 1MG TABLET PO SCH (08:18)
[2022-09-14] MEDS: APIXABAN 5 MG TABLET PO SCH ×2 (08:18→17:14)
[2022-09-14] MEDS: METOPROLOL TARTRATE 50MG TABLET PO SCH (08:18)
[2022-09-14] MEDS: AMLODIPINE 10MG TABLET PO SCH (08:18)
[2022-09-14] MEDS: SEVELAMER CARBONATE 800 MG TABLET PO SCH ×2 (08:18→13:05)
[2022-09-14 11:54] LABS: HEMATOCRIT 25.4 % (36.0-48.0); HEMOGLOBIN 8.4 g/dL (12.0-16.0); MEAN CORPUSCULAR HEMOGLOBIN 28.9 pg (28.0-32.0); PLATELET 255 x1000/uL (130-400); RED BLOOD CELL COUNT 2.92 mill/uL (4.2-5.4); RED CELL DISTRIBUTION WIDTH 17.7 % (11.6-14.6)
[2022-09-14 12:00] VITALS: BP 130/60
[2022-09-14 12:50] LABS: PHOSPHORUS 8.4 mg/dL (2.5-4.9)
[2022-09-14] MEDS ORDERED: SODIUM POLYSTYRENE SULFONATE 15 G/60 ML BOT PO NR (13:15)
[2022-09-14] MEDS ORDERED: ALPR-393 PO (15:12)
[2022-09-14] MEDS ORDERED: AMLO10TA80 MT (15:15)
[2022-09-14] MEDS ORDERED: SEVE800T8 MT (15:22)
[2022-09-14] MEDS ORDERED: METO100T16 MT (15:23)
[2022-09-14] MEDS ORDERED: HYDR-4134 MT (15:23)
[2022-09-14] MEDS ORDERED: ALPR0.5T PO (15:24)
[2022-09-14] MEDS ORDERED: PANT40TA51 PO (15:26)
[2022-09-14] MEDS ORDERED: BRIM10DR2 EACHEYE (15:27)
[2022-09-14] MEDS ORDERED: ABIL5 PO (15:27)
[2022-09-14 16:01] VITALS: BP 112/47
[2022-09-14] MEDS ORDERED: SEVELAMER CARBONATE 800 MG TABLET PO SCH (17:40)
[2022-09-14 20:00] VITALS: BP 142/70
[2022-09-14] MEDS ORDERED: HYDROCODONE/ACETAMINOPHEN 7.5/325MG TABLET PO PRN (20:00)
== END 2022-09-14 21:00 | disposition left against medical advice (07) | DRG 640 ==
LOC: ER 03:44 → MICUSO 10:52 → 8WST 21:54
PROVIDERS: ADMIT Internal Medicine; ATTEND Internal Medicine
PROC: 5A1D70Z Performance of Urinary Filtration, Intermittent, Less than 6 Hours Per Day (ICD-10-PCS; principal; 2022-09-12)
PROC: 5A1D70Z Performance of Urinary Filtration, Intermittent, Less than 6 Hours Per Day (ICD-10-PCS; 2022-09-13)
DX: E87.70 Fluid overload, unspecified (principal); N18.6 End stage renal disease; Q61.3 Polycystic kidney, unspecified; I12.0 Hypertensive chronic kidney disease with stage 5 chronic kidney disease or end stage renal disease; E87.5 Hyperkalemia; D63.8 Anemia in other chronic diseases classified elsewhere; E66.9 Obesity, unspecified; F41.9 Anxiety disorder, unspecified; H54.8 Legal blindness, as defined in USA; M25.552 Pain in left hip; E03.8 Other specified hypothyroidism; Z68.39 Body mass index [BMI] 39.0-39.9, adult; Z88.0 Allergy status to penicillin; Z88.8 Allergy status to other drugs, medicaments and biological substances; Z79.899 Other long term (current) drug therapy; Z79.01 Long term (current) use of anticoagulants; Z99.2 Dependence on renal dialysis; Z53.29 Procedure and treatment not carried out because of patient's decision for other reasons; Z86.711 Personal history of pulmonary embolism
CPT/HCPCS: 36415; 71045; 72100; 72170; 80048; 80053; 80061; 82607; 82728; 82746; 83036; 83540; 83550; 83735; 83880; 84100; 84439; 84443; 84484; 84703; 85025; 85027; 90686; 90935; 93005; 93306; 93970; 99285; J1200; J2270; J2405

== ENCOUNTER 2023-04-29 03:46 | Emergency (ER) | payer MEDICARE ==
[~2023-04-29] VITALS: Ht 167.6 cm; Wt 118.0 kg
[~2023-04-29 03:46] MED LIST changes: -AMLO10TA80 PO; +AMLO5TAB88 PO; +BRIM10DR2 EACHEYE; -CINA30 PO; +CINA90TA PO; +GABA-529 PO; -HYDR-4134 PO; -LORA-249 PO; +LOSA25TA26 PO; -METO-539 PO; +METO25TA6 PO; +NETA2.5D3 EACHEYE; +PANT40TA51 PO; +TAMS-11 PO
[2023-04-29 03:53] VITALS: BP 152/73; PULSE 91; RESP 18; TEMP 97.7; O2SAT 98
== END 2023-04-29 04:45 | disposition left against medical advice (07) ==
LOC: ER 03:46
DX: R06.02 Shortness of breath (principal)
CPT/HCPCS: 93005; 99283

== ENCOUNTER 2023-07-22 03:45 | Emergency (ER) | payer MEDICARE ==
[~2023-07-22] VITALS: Ht 172.7 cm; Wt 122.0 kg
[~2023-07-22 03:45] MED LIST changes: +METO-539 PO; +SACU1TAB PO
[2023-07-22 03:46] VITALS: TEMP 98.4; O2SAT 99
[2023-07-22 03:52] VITALS: BP 195/97; PULSE 92; RESP 20
[2023-07-22] MEDS ORDERED: ONDANSETRON 4MG ODT PO ONE (06:30)
[2023-07-22 08:20] LABS: BASOPHILS % 0.5 % (0.0-2.0); EOSINOPHILS % 3.9 % (0.0-5.0); HEMATOCRIT. 32.6 % (36.0-48.0); HEMOGLOBIN. 10.2 g/dL (12.0-16.0); LYMPHOCYTES % 28.6 % (20.0-50.0); MEAN CORPUSCULAR HEMOGLOBIN 26.4 pg (28.0-32.0); MEAN CORPUSCULAR HGB CONC 31.3 g/dL (31.0-37.0); MEAN CORPUSCULAR VOLUME 84.2 fL (81.0-99.0); PLATELET 255 x1000/uL (130-400); RED BLOOD CELL COUNT 3.88 mill/uL (4.2-5.4); RED CELL DISTRIBUTION WIDTH 20.8 % (11.6-14.6); WHITE BLOOD COUNT 5.7 x1000/uL (4.5-11.0)
[2023-07-22 08:28] LABS: CHLORIDE 97 mEq/L (98-107); INDEX HEMOLYSI 1 (1-3); INDEX ICTERIC 1 (1-4); INDEX LIPEMIC 1 (1-3); POTASSIUM 4.3 mEq/L (3.5-5.1); SODIUM 138 mEq/L (136-145)
[2023-07-22 08:39] LABS: ALANINE AMINOTRANSFERASE 15 IU/L (13-61); ALBUMIN 3.6 g/dL (3.4-5.0); ASPARTATE AMINOTRANSFERASE 9 IU/L (15-37); BILIRUBIN TOTAL 0.6 mg/dL (0.1-1.0); CALCIUM 9.2 mg/dL (8.5-10.1); CARBON DIOXIDE 26 mEq/L (21-32); GLUCOSE 77 mg/dL (70-105); PROTEIN TOTAL 7.4 g/dL (6.0-8.3); UREA NITROGEN BLOOD 79 mg/dL (7-21)
[2023-07-22 08:45] LABS: CREATININE 16.6 mg/dL (0.6-1.3)
[2023-07-22 08:47] LABS: HCG SCREEN NEGATIVE
[2023-07-22] MEDS ORDERED: ONDANSETRON 4MG ODT PO NR (09:00)
== END 2023-07-22 13:20 | disposition left against medical advice (07) ==
LOC: ER 03:45
DX: R10.9 Unspecified abdominal pain (principal); R11.2 Nausea with vomiting, unspecified; I12.0 Hypertensive chronic kidney disease with stage 5 chronic kidney disease or end stage renal disease; N18.6 End stage renal disease; Z99.2 Dependence on renal dialysis; Z98.890 Other specified postprocedural states; Z88.0 Allergy status to penicillin; Z88.8 Allergy status to other drugs, medicaments and biological substances
CPT/HCPCS: 36415; 80053; 84703; 85025; 99283; Q0162